=== PATIENT | female | born 1975 | race Two or more races ===

== ENCOUNTER 2022-03-02 12:29 | Emergency (ER) | payer OTHER ==
[~2022-03-02] VITALS: Ht 154.9 cm; Wt 107.0 kg
[2022-03-02] MEDS ORDERED: SODIUM CHLORIDE 0.9% 1,000 ML IV ONE (14:00)
[2022-03-02] MEDS ORDERED: ONDANSETRON HCL 4 MG/2 ML VIAL IV ONE (14:00)
[2022-03-02] MEDS ORDERED: KETOROLAC TROMETH 30 MG/ML 1ML VIAL IV ONE (14:00)
[2022-03-02 14:30] LABS: Basophils # (auto) 0.1 10 ^3/uL (0-0.2); Eosinophils # (auto) 0.3 10 ^3/uL (0-0.8); Hematocrit 35.8 % (36.0-46.0); Hemoglobin 11.7 g/dL (12.2-16.2); Lymphocytes # (auto) 2.8 10 ^3/uL (0.4-5.4); Lymphocytes % (auto) 27.9 % (10.0-50.0); Mean Corpuscular Hemoglobin 24.7 pg (28.0-32.0); Mean Corpuscular Hgb Conc. 32.7 g/dL (32.0-36.0); Mean Corpuscular Volume 75.4 fL (80.0-100.0); Monocytes # (auto) 0.5 10 ^3/uL (0-1.3); Monocytes % (auto) 5.4 % (0.0-12.0); Neutrophils # (auto) 6.2 10 ^3/uL (1.6-8.6); Neutrophils % (auto) 62.7 % (37.0-80.0); Nucleated Red Blood Cells % 0.1 %; Red Blood Cells 4.75 10^6/uL (4.0-5.20); Red Cell Distribution Width 15.8 % (11.8-14.3)
[2022-03-02 14:40] LABS: Urine Blood Negative /uL (Negative); Urine Specific Gravity 1.032 (1.001-1.035)
[2022-03-02 14:59] LABS: Albumin 3.5 g/dL (3.4-5.0); Calcium 9.4 mg/dL (8.5-10.1); Potassium 4.3 mmol/L (3.5-5.1)
[2022-03-02 15:03] LABS: BUN/Creatinine Ratio 23.5; Bilirubin, Total 0.4 mg/dL (0.2-1.0); Total Protein 7.9 g/dL (6.4-8.2)
[2022-03-02] MEDS ORDERED: DICY10CA PO (15:14)
[2022-03-02] MEDS ORDERED: PANT40TA2 PO (15:14)
[2022-03-02] MEDS ORDERED: DICL50TA2 PO (15:14)
[2022-03-02] MEDS ORDERED: TRAM50TA2 PO (15:14)
[2022-03-02 15:28] VITALS: BP 162/90
== END 2022-03-02 15:29 | disposition home or self-care (01) ==
LOC: ER 12:47
DX: R10.11 Right upper quadrant pain (principal); E11.9 Type 2 diabetes mellitus without complications; D50.9 Iron deficiency anemia, unspecified; I10 Essential (primary) hypertension; R74.8 Abnormal levels of other serum enzymes; Z88.8 Allergy status to other drugs, medicaments and biological substances
CPT/HCPCS: 36415; 76705; 80053; 81001; 81025; 83690; 83735; 85025

== ENCOUNTER 2022-04-17 11:29 | Emergency (ER) | payer MEDICAID, OTHER ==
[~2022-04-17] VITALS: Ht 157.5 cm; Wt 105.4 kg
[~2022-04-17 11:29] MED LIST: DICL50TA2 PO; DICY10CA PO; PANT40TA2 PO; TRAM50TA2 PO
[2022-04-17] MEDS ORDERED: ONDANSETRON HCL 4 MG/2 ML VIAL IV ONE (11:45)
[2022-04-17] MEDS ORDERED: KETOROLAC TROMETH 30 MG/ML 1ML VIAL IV ONE (11:45)
[2022-04-17] MEDS ORDERED: SODIUM CHLORIDE 0.9% 1,000 ML IVB ONE (11:45)
[2022-04-17 12:12] LABS: Basophils # (auto) 0.1 10 ^3/uL (0-0.2); Basophils % (auto) 1.1 % (0.0-2.0); Eosinophils # (auto) 0.3 10 ^3/uL (0-0.8); Monocytes # (auto) 0.4 10 ^3/uL (0-1.3); Neutrophils # (auto) 4.8 10 ^3/uL (1.6-8.6); Nucleated Red Blood Cells % 0.1 %; White Blood Cell 7.7 10^3/uL (4.4-10.8)
[2022-04-17 12:14] LABS: Eosinophils % (auto) 3.8 % (0.0-7.0); Hematocrit 34.2 % (36.0-46.0); Hemoglobin 10.8 g/dL (12.2-16.2); Lymphocytes # (auto) 2.2 10 ^3/uL (0.4-5.4); Lymphocytes % (auto) 28.3 % (10.0-50.0); Mean Corpuscular Hemoglobin 23.2 pg (28.0-32.0); Mean Corpuscular Hgb Conc. 31.6 g/dL (32.0-36.0); Mean Corpuscular Volume 73.3 fL (80.0-100.0); Monocytes % (auto) 5.1 % (0.0-12.0); Neutrophils % (auto) 61.7 % (37.0-80.0); Red Blood Cells 4.67 10^6/uL (4.0-5.20); Red Cell Distribution Width 15.2 % (11.8-14.3)
[2022-04-17 12:22] LABS: Albumin 3.5 g/dL (3.4-5.0); Calcium 9.2 mg/dL (8.5-10.1); Potassium 4.1 mmol/L (3.5-5.1)
[2022-04-17 12:25] LABS: BUN/Creatinine Ratio 16.7; Bilirubin, Total 0.3 mg/dL (0.2-1.0); Total Protein 8.1 g/dL (6.4-8.2)
[2022-04-17 13:35] LABS: Urine Bacteria NONE SEEN /hpf (None Seen); Urine Blood 2+ /uL (Negative); Urine Mucus FEW (None Seen); Urine Specific Gravity 1.029 (1.001-1.035); Urine WBC 5 /hpf (0 - 5)
[2022-04-17 15:25] VITALS: BP 116/53
== END 2022-04-17 15:43 | disposition home or self-care (01) ==
LOC: ER 11:33
DX: R10.11 Right upper quadrant pain (principal); R11.0 Nausea; R19.7 Diarrhea, unspecified; I10 Essential (primary) hypertension; E11.9 Type 2 diabetes mellitus without complications; E78.5 Hyperlipidemia, unspecified; Z79.2 Long term (current) use of antibiotics; Z79.899 Other long term (current) drug therapy; Z88.8 Allergy status to other drugs, medicaments and biological substances
CPT/HCPCS: 36415; 76705; 80053; 81001; 82962; 83690; 85025; 96361; 96374; 96375; 99284; J1885; J2405; J7030

== ENCOUNTER 2023-03-23 20:24 | Emergency (ER) | payer MEDICAID, OTHER ==
[~2023-03-23] VITALS: Ht 157.5 cm; Wt 97.9 kg
[2023-03-23 20:24] VITALS: BP 134/60; PULSE 93; RESP 18; O2SAT 96
== END 2023-03-23 23:28 | disposition left against medical advice (07) ==
LOC: ER 20:24
DX: H92.03 Otalgia, bilateral (principal); J02.9 Acute pharyngitis, unspecified; Z53.21 Procedure and treatment not carried out due to patient leaving prior to being seen by health care provider

== ENCOUNTER 2023-03-27 18:21 | Emergency (ER) | payer OTHER ==
[~2023-03-27] VITALS: Ht 160 cm; Wt 99.0 kg
[2023-03-27 18:30] VITALS: BP 140/76; PULSE 98; RESP 20; TEMP 97.8; O2SAT 100
[2023-03-27 21:16] LABS: Rapid Strep A Screen-Throat Negative
[2023-03-27] MEDS ORDERED: DexAMETHasone SOD PHOS 10MG/1ML VIAL INJ IM ONE (21:30)
[2023-03-27] MEDS ORDERED: BUDE2SUS3 IN (21:54)
== END 2023-03-27 22:13 | disposition home or self-care (01) ==
LOC: ER 18:21
DX: J04.0 Acute laryngitis (principal); I10 Essential (primary) hypertension; E11.9 Type 2 diabetes mellitus without complications; E78.5 Hyperlipidemia, unspecified; Z98.890 Other specified postprocedural states; Z88.8 Allergy status to other drugs, medicaments and biological substances; Z79.899 Other long term (current) drug therapy
CPT/HCPCS: 70360; 87070; 87880; 96372; 99284; J1100

== ENCOUNTER 2023-04-07 20:21 | Emergency (ER) | payer OTHER ==
[~2023-04-07] VITALS: Ht 160 cm; Wt 95.0 kg
[2023-04-07 20:21] VITALS: BP 156/81; PULSE 104; RESP 20; O2SAT 97
[~2023-04-07 20:21] MED LIST changes: +BUDE2SUS3 IN
== END 2023-04-07 22:13 | disposition left against medical advice (07) ==
LOC: ER 20:21
DX: J02.9 Acute pharyngitis, unspecified (principal); Z53.21 Procedure and treatment not carried out due to patient leaving prior to being seen by health care provider

== ENCOUNTER 2023-09-14 14:57 | Emergency (ER) | payer OTHER ==
[~2023-09-14] VITALS: Ht 160 cm; Wt 96.7 kg
[2023-09-14 16:23] VITALS: BP 129/72; PULSE 94; RESP 16; TEMP 97.8; O2SAT 98
[2023-09-14] MEDS: DexAMETHasone SOD PHOS 10MG/1ML VIAL INJ IM ONE (16:43)
[2023-09-14] MEDS ORDERED: PENI500T2 PO (16:54)
[2023-09-14] MEDS ORDERED: NAPR-746 PO (16:54)
[2023-09-14] MEDS ORDERED: LIDO2SOL26 MT (16:54)
== END 2023-09-14 16:54 | disposition home or self-care (01) ==
LOC: ER 15:00
DX: J02.9 Acute pharyngitis, unspecified (principal); I10 Essential (primary) hypertension; E11.9 Type 2 diabetes mellitus without complications; E78.5 Hyperlipidemia, unspecified; Z86.16 Personal history of COVID-19; Z88.8 Allergy status to other drugs, medicaments and biological substances; Z79.899 Other long term (current) drug therapy
CPT/HCPCS: 96372; 99283; J1100

== ENCOUNTER 2024-06-30 21:34 | Emergency (ER) | payer OTHER ==
[~2024-06-30] VITALS: Ht 160 cm; Wt 85.8 kg
[~2024-06-30 21:34] MED LIST changes: +LIDO2SOL26 MT; +NAPR-746 PO; +PENI500T2 PO
[2024-06-30 22:10] VITALS: BP 140/75; PULSE 93; RESP 16; TEMP 99; O2SAT 98
[2024-07-01] MEDS ORDERED: CEPHALEXIN 250 MG CAP PO ONE
[2024-07-01] MEDS ORDERED: KETOROLAC TROMETH 60MG/2ML VIAL IM ONE
[2024-07-01] MEDS ORDERED: TETANUS-DIPTH-ACEL PERTUSSIS 0.5ML SYR Tdap IM ONE
[2024-07-01] MEDS ORDERED: IBUP1TAB5 PO (00:07)
[2024-07-01] MEDS ORDERED: CEPH250C PO (00:07)
[2024-07-01] MEDS ORDERED: ACET500T58 PO (00:07)
--- NOTE | 2024-07-01 00:08 | ED.PDOC ---
History of Present Illness HPI Comments This patient is an obese 48-year-old female who arrives the ED today for evaluation of bumps on her scalp and headache that has been bothering her for the past several days. Patient states the bumps came up randomly and subsequent to those bumps, patient states she has developed intermittent headaches. Ani nt denies any history of dermatological concerns or intracranial issues. Vital signs were stable on arrival. Chief Complaint: Wound Check Time Seen by MD: 21:52 Primary Care Provider: Dr. Hansen Reviewed Notes: Nurses Notes Allergies: Coded Allergies: Prochlorperazine (Verified Allergy, Unknown, 03/02/22) Home Meds Active Scripts Penicillin V Potassium (Veetids) 500 Mg Tab, 1 TAB PO BID for 10 Days, #20 TAB 0 Refills Prov:RITO HAGEN PERSONNEL COUNSELOR 09/14/23 Lidocaine HCl (Mouth-Throat) (Lidocaine HCl Viscous) 2 % Lynn, 15 ML MT TIDP PRN for 10 Days, #1 BOTTLE 0 Refills Prov:RITO HAGEN NP 09/14/23 Naproxen (Naproxen) 500 Mg Tab, 500 MG PO BIDPC for 10 Days, #20 TAB 0 Refills Prov:RITO HAGEN PERSONNEL COUNSELOR 09/14/23 Budesonide (Inhalation) (Budesonide) 1 Mg/2 Ml Karely, 1 MG IN ONCE for 5 Days, #10 ML Prov:LOLY GREY PAC 03/27/23 Tramadol Hcl (Tramadol Hcl) 50 Mg Tab, 50 MG PO BID for 5 Days, #10 TAB Prov:ROD MCMAHON MD 03/02/22 Dicyclomine Hcl (BENTYL CAPSULE) 10 Mg Cp, 1 CAP PO TID for 10 Days, #90 CAP 11 Refills Prov:ROD MCMAHON MD 03/02/22 Diclofenac Potassium (Diclofenac Potassium) 50 Mg Tab, 1 TAB PO TIDP for 10 Days, #30 TAB Prov:ROD MCMAHON MD 03/02/22 Pantoprazole Sodium Sesquihydr (Protonix) 40 Mg Tab, 40 MG PO DAILY for 15 Days, #15 TAB Prov:ROD MCMAHON MD 03/02/22 Information Source: Patient Mode of Arrival: Ambulatory Severity: Moderate Timing: Days Duration: Since onset Prehospital treatment: None Past Medical History PAST MEDICAL HISTORY: DM, High Lipids, HTN 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: SOUND CONTROLLER History: Denies all SOUND 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 Hx Family History Family History: Reviewed,noncontributory to illness Social History Smoker: Non-Smoker Alcohol: Denies ETOH Use Drugs: Denies Drug Use Lives In: Home Constitutional: denies: chills, diaphoresis, fatigue, fever, malaise, sweats, weakness, others EENTM: denies: blurred vision, double vision, ear bleeding, ear discharge, ear drainage, ear pain, ear ringing, eye pain, eye redness, hearing loss, mouth pain, mouth swelling, nasal discharge, nose bleeding, nose congestion, nose pain, photophobia, tearing, throat pain, throat swelling, voice changes, others Respiratory: denies: cough, hemoptysis, orthopnea, SOB at rest, shortness of breath, SOB with excertion, stridor, wheezing, others Cardiovascular: denies: chest pain, dizzy spells, diaphoresis, Dyspnea on exertion, edema, irregular heart beat, left arm pain, lightheadedness, palpitations, PND, syncope, others Gastrointestinal: denies: abdomen distended, abdominal pain, blood streaked bowels, constipated, diarrhea, dysphagia, difficulty swallowing, hematemesis, melena, nausea, poor appetite, poor fluid intake, rectal bleeding, rectal pain, vomiting, others Genitourinary: denies: abnormal vagina bleeding, burning, dyspareunia, dysuria, flank pain, frequency, hematuria, incontinence, pain, , vagina discharge, urgency, others Neurological: reports: headache; denies: dizziness, fainting, left sided numbness, left sided weakness, numbness, paresthesia, pre-existing deficit, right sided numbness, right sided weakness, seizure, speech problems, tingling, tremors, weakness, others Musculoskeletal: denies: back pain, gout, joint pain, joint swelling, muscle pain, muscle stiffness, neck pain, others Integumetry: reports: lumps (To superior scalp); denies: bruises, change in color, change in hair/nails, dryness, laceration, lesions, rash, wounds, others Allergic/Immunocompromised: denies: Difficulty Healing, Frequent Infections, Hives, Itching, others Hematologic/Lymphatic: denies: anemia, blood clots, easy bleeding, easy bruising, swollen glands, others Endocrine: denies: excessive hunger, excessive sweating, excessive thirst, excessive urination, flushing, intolerance to cold, intolerance to heat, unexplained weight gain, unexplained weight loss, others Psychiatric: denies: anxiety, bipolar disorder, depression, hopeless, panic disorder, schizophrenia, sleepless, suicidal, others Physical Exam General Appearance: Moderate Distress (Acli-sa-hzipcvft distress due to scalp skin and headache concerns.), Normal HEENT: Head (Superior aspect of the patient's scalp reveals multiple lumps and dense including signs of evolving or resolving folliculitis. Localized erythema and edema. One point of drainage noted.), Normal ENT Inspection, Pharynx Normal, TMs Normal Neck: Full Range of Motion, Non-Tender, Normal, Normal Inspection Respiratory: Chest Non-Tender, Lungs Clear, No Accessory Muscle Use, No Respiratory Distress, Normal Breath Sounds Cardiovascular: No Edema, No JVD, No Murmur, No Gallop, Normal Peripheral Pulses, Regular Rate/Rhythm Breast Exam: Deferred Gastrointestinal: No Organomegaly, Non Tender, No Pulsatile Mass, Normal Bowel Sounds, Soft Genitalia: Deferred Pelvic: Deferred Rectal: Deferred Extremities: No calf tenderness, Normal capillary refill, Normal inspection, Normal range of motion, Non-tender, No pedal edema Neurologic: Alert, No Motor Deficits, Normal Affect, Normal Mood, No Sensory Deficits Cerebellar Function: Normal Reflexes: Normal Skin: Other (See HEENT for description of scalp tissue) Lymphatic: No Adenopathy Was a procedure done? Was a procedure done?: No Differential Dx Considerations may include: Folliculitis, headache X-Ray, Labs, Meds, VS Vital Signs Date Time Temp Pulse Resp B/P (MAP) Pulse Ox O2 Delivery O2 Flow Rate FiO2 06/30/24 22:10 99.0 93 16 140/75 (96) 98 99.0 X-Ray, Labs, Meds, VS Comment Spent time discussing the patient's concerns with her. Advised that I believe she has got a intermittent folliculitis. Patient has been advised to utilize antibiotics as directed until completion. Pain medication as needed. If symptoms do not resolve, patient will need to follow up with primary care provider for possible dermatologic referral and evaluation. Time of 1ST Reevaluation: 00:05 Reevaluation 1ST: Improved Consultation: PCP Patient Education/Counseling: Diagnosis, Treatment Family Education/Counseling: Diagnosis, Treatment Departure 1 Departure Time of Disposition: 00:06 Impression: Primary Impression: Folliculitis Disposition: HOME / SELF CARE / HOMELESS Condition: Stable Additional Instructions: Advised patient utilize antibiotics as directed until completion as well as pain medication as needed. If symptoms do not resolve, patient will need to follow up with the primary care provider for possible dermatologic referral and evaluation. e-Prescriptions Ibuprofen Micronized (Ibuprofen) 600 Mg Tab 600 MG PO Q6HP PRN, #30 TAB Prov: ERIN BARAHONA PAC 07/01/24 Acetaminophen (Acetaminophen) 500 Mg Tab 500 MG PO Q4HP PRN, #30 TAB Prov: ERIN BARAHONA PAC 07/01/24 Cephalexin (KEFLEX CAPSULE) 250 Mg Cp 1 CAP PO QID for 7 Days, #28 CAP Prov: ERIN BARAHONA [facility] 07/01/24 Discharged With: Self, Friend Critical Care Note Critical Care Time?: No Stability Stability form required: No Heart Score Heart Score: Heart Score Response (Comments) Value History N/A 0 EKG N/A 0 Age N/A 0 Risk Factors N/A 0 Troponin N/A 0 Total 0 ERIN BARAHONA Jul 01, 2024 00:08
== END 2024-07-01 02:34 | disposition left against medical advice (07) ==
LOC: ER 21:34
DX: L73.9 Follicular disorder, unspecified (principal); E11.9 Type 2 diabetes mellitus without complications; I10 Essential (primary) hypertension; E78.5 Hyperlipidemia, unspecified; Z79.899 Other long term (current) drug therapy; Z88.1 Allergy status to other antibiotic agents

== ENCOUNTER 2024-07-13 18:38 | Emergency (ER) | payer OTHER ==
[~2024-07-13] VITALS: Ht 157.5 cm; Wt 86.5 kg
[~2024-07-13 18:38] MED LIST changes: +ACET500T58 PO; +CEPH250C PO; +IBUP1TAB5 PO
[2024-07-13 18:46] VITALS: BP 156/86; PULSE 99; RESP 18; TEMP 98.2; O2SAT 99
== END 2024-07-13 20:15 | disposition left against medical advice (07) ==
LOC: ER 18:38
DX: R51.9 Headache, unspecified (principal); R22.0 Localized swelling, mass and lump, head; Z53.21 Procedure and treatment not carried out due to patient leaving prior to being seen by health care provider

== ENCOUNTER 2024-08-01 09:41 | Emergency (ER) | payer OTHER ==
[~2024-08-01] VITALS: Ht 157.5 cm; Wt 82.0 kg
[2024-08-01] MEDS: HYDROcodone-ACET 10/325MG TAB PO ONE (11:06)
[2024-08-01] MEDS: IBUPROFEN 600 MG TAB PO ONE (11:06)
[2024-08-01 12:00] LABS: Basophils # (auto) 0.1 10 ^3/uL (0-0.2); Basophils % (auto) 0.8 % (0.0-2.0); Eosinophils # (auto) 0.6 10 ^3/uL (0-0.8); Eosinophils % (auto) 6.6 % (0.0-7.0); Hematocrit 31.4 % (36.0-46.0); Hemoglobin 9.9 g/dL (12.2-16.2); Lymphocytes # (auto) 2.2 10 ^3/uL (0.4-5.4); Lymphocytes % (auto) 25.2 % (10.0-50.0); Mean Corpuscular Hemoglobin 22.1 pg (28.0-32.0); Mean Corpuscular Hgb Conc. 31.7 g/dL (32.0-36.0); Mean Corpuscular Volume 69.6 fL (80.0-100.0); Monocytes # (auto) 0.6 10 ^3/uL (0-1.3); Monocytes % (auto) 6.5 % (0.0-12.0); Neutrophils # (auto) 5.4 10 ^3/uL (1.6-8.6); Neutrophils % (auto) 60.9 % (37.0-80.0); Platelet Count (auto) 258 10^3/uL (140-450); Red Blood Cells 4.51 10^6/uL (4.0-5.20); Red Cell Distribution Width 16.6 % (11.8-14.3); White Blood Cell 8.8 10^3/uL (4.4-10.8)
[2024-08-01 12:08] LABS: Chloride 106 mmol/L (98-107); Potassium 3.6 mmol/L (3.5-5.1); Sodium 139 mmol/L (136-145)
[2024-08-01 12:09] LABS: Anion Gap 7 (5-15); Carbon Dioxide 26 mmol/L (20-31)
[2024-08-01 12:10] LABS: Calcium 9.9 mg/dL (8.7-10.4)
[2024-08-01 12:14] LABS: BUN/Creatinine Ratio 20.7 (10.0-20.0); Blood Urea Nitrogen 12 mg/dL (9-23)
[2024-08-01 12:16] LABS: Glucose 214 mg/dL (74-106)
[2024-08-01] MEDS ORDERED: NAPR-957 PO (12:25)
[2024-08-01] MEDS ORDERED: METH-1181 PO (12:25)
--- NOTE | 2024-08-01 12:25 | ED.PDOC ---
Back pain HPI HPI Comments This is a pleasant 48-year-old female with a history of diabetes, hypertension that presents with a chief complaint of atraumatic nonradiating right lumbosacral paraspinal back pain Onset started two days ago and pain has been persistent since. Able to get minimal relief with [id number] Tylenol and Motrin. Pain is aggravated with lateral movements and alleviated at rest Denies history of chronic steroid use or history of osteoporosis Denies any history of cancer Denies fevers chills night sweats nausea vomiting unintentional weight loss Denies IV drug use history of HIV/TB Denies abdominal "tearing" pain Denies syncope Denies urinary incontinence or urinary changes Denies numbness tingling of the groin or inner thigh Denies previous back procedure or surgery Chief Complaint: Back Pain Time Seen by MD: 10:04 Primary Care Provider: AIDEN Suaerz Notes: Nurses Notes, Medications, Allergies Allergies: Coded Allergies: Prochlorperazine (Verified Allergy, Unknown, 03/02/22) Home Meds Active Scripts Ibuprofen Micronized (Ibuprofen) 600 Mg Tab, 600 MG PO Q6HP PRN, #30 TAB Prov:ERIN BARAHONA PAC 07/01/24 Acetaminophen (Acetaminophen) 500 Mg Tab, 500 MG PO Q4HP PRN, #30 TAB Prov:ERIN BARAHONA PAC 07/01/24 Cephalexin (KEFLEX CAPSULE) 250 Mg Cp, 1 CAP PO QID for 7 Days, #28 CAP Prov:ERIN BARAHONA PAC 07/01/24 Penicillin V Potassium (Veetids) 500 Mg Tab, 1 TAB PO BID for 10 Days, #20 TAB 0 Refills Prov:RITO HAGEN SAFETY AND SECURITY MANAGER 09/14/23 Lidocaine HCl (Mouth-Throat) (Lidocaine HCl Viscous) 2 % Lynn, 15 ML MT TIDP PRN for 10 Days, #1 BOTTLE 0 Refills Prov:RITO HAGEN SAFETY AND SECURITY MANAGER 09/14/23 Naproxen (Naproxen) 500 Mg Tab, 500 MG PO BIDPC for 10 Days, #20 TAB 0 Refills Prov:RITO HAGEN SAFETY AND SECURITY MANAGER 09/14/23 Budesonide (Inhalation) (Budesonide) 1 Mg/2 Ml Karely, 1 MG IN ONCE for 5 Days, #10 ML Prov:LOLY GREY PAC 03/27/23 Tramadol Hcl (Tramadol Hcl) 50 Mg Tab, 50 MG PO BID for 5 Days, #10 TAB Prov:ROD MCMAHON MD 03/02/22 Dicyclomine Hcl (BENTYL CAPSULE) 10 Mg Cp, 1 CAP PO TID for 10 Days, #90 CAP 11 Refills Prov:ROD MCMAHON MD 03/02/22 Diclofenac Potassium (Diclofenac Potassium) 50 Mg Tab, 1 TAB PO TIDP for 10 Days, #30 TAB Prov:ROD MCMAHON MD 03/02/22 Pantoprazole Sodium Sesquihydr (Protonix) 40 Mg Tab, 40 MG PO DAILY for 15 Days, #15 TAB Prov:ROD MCMAHON MD 03/02/22 Information Source: Patient Mode of Arrival: Ambulatory Past Medical History PAST MEDICAL HISTORY: DM, High Lipids, HTN 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: 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 AGENT Hx Family History Family History: Reviewed,noncontributory to illness Social History Smoker: Non-Smoker Alcohol: Denies ETOH Use Drugs: Denies Drug Use Lives In: Home All Other Systems: Reviewed and Negative (Per HPI) Physical Exam General Appearance: No Apparent Distress, Normal HEENT: Normal ENT Inspection, Pharynx Normal, TMs Normal Neck: Full Range of Motion, Non-Tender, Normal, Normal Inspection Respiratory: Chest Non-Tender, Lungs Clear, No Accessory Muscle Use, No Respiratory Distress, Normal Breath Sounds Cardiovascular: No Edema, No JVD, No Murmur, No Gallop, Normal Peripheral Pulses, Regular Rate/Rhythm Breast Exam: Deferred Gastrointestinal: No Organomegaly, Non Tender, No Pulsatile Mass, Normal Bowel Sounds, Soft Genitalia: Deferred Pelvic: Deferred Rectal: Deferred Extremities: No calf tenderness, Normal capillary refill, Normal inspection, Normal range of motion, Non-tender, No pedal edema Musculoskeletal : Apperance: Normal Neurologic: Alert, able bodied seaman II-XII nml as Tested, No Motor Deficits, Normal Affect, Normal Mood, No Sensory Deficits Cerebellar Function: Normal Reflexes: Normal Skin: Dry, Normal Color, Warm Lymphatic: No Adenopathy Was a procedure done? Was a procedure done?: No Images 1 - No gross abnormality on inspection. No midline tenderness. No bony step- offs on palpation. Right paraspinal lumbosacral tenderness to palpation. Distal neuro sensation intact Back Pain Differential Dx Differential Diagnosis: Musculoskeletal Pain X-Ray, Labs, Meds, VS Vital Signs Date Time Temp Pulse Resp B/P (MAP) Pulse Ox O2 Delivery O2 Flow Rate FiO2 08/01/24 11:06 98.6 08/01/24 10:02 98.1 86 28 114/62 (79) 100 98.1 Lab Test 08/01/24 11:45 Range/Units White Blood Count 8.8 4.4-10.8 10^3/uL Red Blood Count 4.51 4.0-5.20 10^6/uL Hemoglobin 9.9 L 12.2-16.2 g/dL Hematocrit 31.4 L 36.0-46.0 % Mean Corpuscular Volume 69.6 L 80.0-100.0 fL Mean Corpuscular Hemoglobin 22.1 L 28.0-32.0 pg Mean Corpuscular Hemoglobin Concent 31.7 L 32.0-36.0 g/dL Red Cell Distribution Width 16.6 H 11.8-14.3 % Platelet Count 258 140-450 10^3/uL Mean Platelet Volume 7.3 6.9-10.8 fL Neutrophils (%) (Auto) 60.9 37.0-80.0 % Lymphocytes (%) (Auto) 25.2 10.0-50.0 % Monocytes (%) (Auto) 6.5 0.0-12.0 % Eosinophils (%) (Auto) 6.6 0.0-7.0 % Basophils (%) (Auto) 0.8 0.0-2.0 % Neutrophils # (Auto) 5.4 1.6-8.6 10 ^3/uL Lymphocytes # (Auto) 2.2 0.4-5.4 10 ^3/uL Monocytes # (Auto) 0.6 0-1.3 10 ^3/uL Eosinophils # (Auto) 0.6 0-0.8 10 ^3/uL Basophils # (Auto) 0.1 0-0.2 10 ^3/uL Nucleated Red Blood Cells 0.0 % Sodium Level 139 136-145 mmol/L Potassium Level 3.6 3.5-5.1 mmol/L Chloride Level 106 98-107 mmol/L Carbon Dioxide Level 26 20-31 mmol/L Anion Gap 7 5-15 Blood Urea Nitrogen 12 9-23 mg/dL Creatinine 0.58 0.550-1.02 mg/dL Glomerular Filtration Rate Calc 110 >90 mL/min BUN/Creatinine Ratio 20.7 H 10.0-20.0 Serum Glucose 214 H 74-106 mg/dL Calcium Level 9.9 8.7-10.4 mg/dL Current Medications Medications (Trade) Dose Ordered Sig/Thomas Route Start Time Stop Time Status Last Admin Ibuprofen (Motrin Tablet) 600 mg ONCE ONCE PO 08/01/24 11:00 08/01/24 11:01 DC 08/01/24 11:06 Acetaminophen/ Hydrocodone Bitart ([place] 10/325MG Tab) 1 tab ONCE ONCE PO 08/01/24 11:00 08/01/24 11:01 DC 08/01/24 11:06 X-Ray, Labs, Meds, VS Comment Presentation most consistent with nonemergent musculoskeletal etiology versus nonemergent disc herniation. ED workup: Defer imaging and lab work for outpatient follow up at this time Disposition: Discharge. Strict return precautions discussed with the patient with full understanding. Supportive care advised (rest, ice, heat, NSAIDs, stretching exercises) Massage muscles with cold pack or ice for 20 minutes 4 times per day. Usually most useful if there is swelling during the first 48 hours Heating pad on the most painful area for 20 minutes to relieve muscle spasm Sleep and the most comfortable sleeping position (usually on the side with knees bent) Light stretching, no strenuous activity, avoid frequent bending, avoid carrying heavy objects Discussed possible benefits of yoga and acupuncture Return precautions discussed including Inability to walk/bear weight Paresthesia/weakness/leg pain Fecal/urinary incontinence Any worsening symptoms Additional MDM Review of External, Non-ED records: External records reviewed. Discussion with independent historian (EMS, family) history obtained from the patient at bedside Chronic conditions affecting care: none Social determinants of health affecting care: none Consideration of admission (observation or admission): I considered escalation of care to admission for this patient, however given the reassuring workup, the patient is safe for outpatient management. Time of 1ST Reevaluation: 12:23 Reevaluation 1ST: Improved Patient Education/Counseling: Diagnosis, Treatment Family Education/Counseling: Diagnosis, Treatment Departure 1 Departure Time of Disposition: 12:24 Impression: Primary Impression: Back pain Qualified Codes: M54.50 - Low back pain, unspecified Disposition: HOME / SELF CARE / HOMELESS Condition: Fair e-Prescriptions Naproxen (Naproxen) 375 Mg Tab 1 TAB PO BIDPC for 10 Days, #20 TAB 0 Refills Prov: RITO HAGEN SAFETY AND SECURITY MANAGER 08/01/24 Methocarbamol (Methocarbamol) 500 Mg Tab 500 MG PO Q6HP PRN for 10 Days, #40 TAB 0 Refills Prov: RITO HAGEN SAFETY AND SECURITY MANAGER 08/01/24 Critical Care Note Critical Care Time?: No Stability Stability form required: No Heart Score Heart Score: Heart Score Response (Comments) Value History N/A 0 EKG N/A 0 Age N/A 0 Risk Factors N/A 0 Troponin N/A 0 Total 0 RITO HAGEN SAFETY AND SECURITY MANAGER August 01, 2024 12:25
[2024-08-01 12:30] VITALS: BP 115/66; PULSE 88; RESP 17; TEMP 98.2; O2SAT 100
== END 2024-08-01 12:32 | disposition home or self-care (01) ==
LOC: ER 09:41
DX: M54.9 Dorsalgia, unspecified (principal); E11.9 Type 2 diabetes mellitus without complications; I10 Essential (primary) hypertension; E78.5 Hyperlipidemia, unspecified; Z79.899 Other long term (current) drug therapy; Z98.890 Other specified postprocedural states; Z88.1 Allergy status to other antibiotic agents
CPT/HCPCS: 36415; 80048; 85025

== ENCOUNTER 2024-12-18 23:26 | Emergency (ER) | payer OTHER ==
[~2024-12-18] VITALS: Ht 160 cm; Wt 70.3 kg
[~2024-12-18 23:26] MED LIST changes: +METH-1181 PO; +NAPR-957 PO
[2024-12-18 23:27] VITALS: BP 125/54; PULSE 89; RESP 19; TEMP 97; O2SAT 98
[2024-12-19 01:34] LABS: Urine Amorphous Crystal FEW /hpf (None Seen); Urine Protein, UAD TRACE (Negative)
== END 2024-12-19 01:45 | disposition left against medical advice (07) ==
LOC: ER 23:26
DX: M54.9 Dorsalgia, unspecified (principal); Z53.21 Procedure and treatment not carried out due to patient leaving prior to being seen by health care provider
CPT/HCPCS: 81001

== ENCOUNTER 2025-01-09 15:12 | Emergency (ER) | payer OTHER ==
[~2025-01-09] VITALS: Ht 160 cm; Wt 93.1 kg
[2025-01-09 15:13] VITALS: BP 143/82; PULSE 94; RESP 15; TEMP 97.7; O2SAT 99
--- NOTE | 2025-01-09 15:24 | ED.PDOC ---
History of Present Illness HPI Comments 49 year old female with PMHx HTN, HLD, DM, aneurysm, presents to the ED with a chief compliant of neck pain onset today (01/09/25). Patient states she woke up today experiencing RT side neck pain, headache. Patient is being followed up by [facility] for aneurysm, pending surgery. Patient called PCP, was advised to go to ED. Denies, blurred vision, numbness/tingling, chest pain, shortness of breath, nausea, vomiting, diarrhea. No other symptoms or modifying factors present at this time. Chief Complaint: Neck Pain Time Seen by MD: 15:20 Primary Care Provider: AIDEN Suarez Notes: Medications, Allergies Allergies: Coded Allergies: Prochlorperazine (Verified Allergy, Unknown, 03/02/22) Home Meds Active Scripts Naproxen (Naproxen) 375 Mg Tab, 1 TAB PO BIDPC for 10 Days, #20 TAB 0 Refills Prov:RITO HAGEN HOGSHEAD OPENER 08/01/24 Methocarbamol (Methocarbamol) 500 Mg Tab, 500 MG PO Q6HP PRN for 10 Days, #40 TAB 0 Refills Prov:RITO HAGEN HOGSHEAD OPENER 08/01/24 Ibuprofen Micronized (Ibuprofen) 600 Mg Tab, 600 MG PO Q6HP PRN, #30 TAB Prov:ERIN BARAHONA PAC 07/01/24 Acetaminophen (Acetaminophen) 500 Mg Tab, 500 MG PO Q4HP PRN, #30 TAB Prov:ERIN BARAHONA PAC 07/01/24 Cephalexin (KEFLEX CAPSULE) 250 Mg Cp, 1 CAP PO QID for 7 Days, #28 CAP Prov:ERIN BARAHONA PAC 07/01/24 Penicillin V Potassium (Veetids) 500 Mg Tab, 1 TAB PO BID for 10 Days, #20 TAB 0 Refills Prov:RITO HAGEN HOGSHEAD OPENER 09/14/23 Lidocaine HCl (Mouth-Throat) (Lidocaine HCl Viscous) 2 % Lynn, 15 ML MT TIDP PRN for 10 Days, #1 BOTTLE 0 Refills Prov:RITO HAGEN HOGSHEAD OPENER 09/14/23 Naproxen (Naproxen) 500 Mg Tab, 500 MG PO BIDPC for 10 Days, #20 TAB 0 Refills Prov:RITO HAGEN HOGSHEAD OPENER 09/14/23 Budesonide (Inhalation) (Budesonide) 1 Mg/2 Ml Karely, 1 MG IN ONCE for 5 Days, #10 ML Prov:LOLY GREY PAC 03/27/23 Tramadol Hcl (Tramadol Hcl) 50 Mg Tab, 50 MG PO BID for 5 Days, #10 TAB Prov:ROD MCMAHON MD 03/02/22 Dicyclomine Hcl (BENTYL CAPSULE) 10 Mg Cp, 1 CAP PO TID for 10 Days, #90 CAP 11 Refills Prov:ROD MCMAHON MD 03/02/22 Diclofenac Potassium (Diclofenac Potassium) 50 Mg Tab, 1 TAB PO TIDP for 10 Days, #30 TAB Prov:ROD MCMAHON MD 03/02/22 Pantoprazole Sodium Sesquihydr (Protonix) 40 Mg Tab, 40 MG PO DAILY for 15 Days, #15 TAB Prov:ROD MCMAHON MD 03/02/22 Information Source: Patient Mode of Arrival: Ambulatory Severity: Moderate Timing: Hours Duration: Since onset Prehospital treatment: None Past Medical History PAST MEDICAL HISTORY: DM, High Lipids, HTN 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 SCIENCE TEACHER Hx Family History Family History: Reviewed,noncontributory to illness Social History Smoker: Non-Smoker Alcohol: Denies ETOH Use Drugs: Denies Drug Use Lives In: Home Constitutional: denies: chills, diaphoresis, fatigue, fever, malaise, sweats, weakness, others EENTM: denies: blurred vision, double vision, ear bleeding, ear discharge, ear drainage, ear pain, ear ringing, eye pain, eye redness, hearing loss, mouth pain, mouth swelling, nasal discharge, nose bleeding, nose congestion, nose pain, photophobia, tearing, throat pain, throat swelling, voice changes, others Respiratory: denies: cough, hemoptysis, orthopnea, SOB at rest, shortness of breath, SOB with excertion, stridor, wheezing, others Cardiovascular: denies: chest pain, dizzy spells, diaphoresis, Dyspnea on exertion, edema, irregular heart beat, left arm pain, lightheadedness, palpitations, PND, syncope, others Gastrointestinal: denies: abdomen distended, abdominal pain, blood streaked bowels, constipated, diarrhea, dysphagia, difficulty swallowing, hematemesis, melena, nausea, poor appetite, poor fluid intake, rectal bleeding, rectal pain, vomiting, others Genitourinary: denies: abnormal vagina bleeding, burning, dyspareunia, dysuria, flank pain, frequency, hematuria, incontinence, pain, , vagina discharge, urgency, others Neurological: reports: headache; denies: dizziness, fainting, left sided numbness, left sided weakness, numbness, paresthesia, pre-existing deficit, right sided numbness, right sided weakness, seizure, speech problems, tingling, tremors, weakness, others Musculoskeletal: reports: neck pain; denies: back pain, gout, joint pain, joint swelling, muscle pain, muscle stiffness, others Integumetry: denies: bruises, change in color, change in hair/nails, dryness, laceration, lesions, lumps, rash, wounds, others Allergic/Immunocompromised: denies: Difficulty Healing, Frequent Infections, Hives, Itching, others Hematologic/Lymphatic: denies: anemia, blood clots, easy bleeding, easy bruising, swollen glands, others Endocrine: denies: excessive hunger, excessive sweating, excessive thirst, excessive urination, flushing, intolerance to cold, intolerance to heat, unexplained weight gain, unexplained weight loss, others Psychiatric: denies: anxiety, bipolar disorder, depression, hopeless, panic disorder, schizophrenia, sleepless, suicidal, others All Other Systems: Reviewed and Negative Physical Exam General Appearance: Moderate Distress, Other (appears uncomfortable) HEENT: Normal ENT Inspection, Pharynx Normal, TMs Normal Neck: Full Range of Motion, Non-Tender, Normal, Normal Inspection Respiratory: Chest Non-Tender, Lungs Clear, No Accessory Muscle Use, No Respiratory Distress, Normal Breath Sounds Cardiovascular: No Edema, No JVD, No Murmur, No Gallop, Normal Peripheral Pulses, Regular Rate/Rhythm Breast Exam: Deferred Gastrointestinal: No Organomegaly, Non Tender, No Pulsatile Mass, Normal Bowel Sounds, Soft Genitalia: Deferred Pelvic: Deferred Rectal: Deferred Extremities: No calf tenderness, Normal capillary refill, Normal inspection, Normal range of motion, Non-tender, No pedal edema Musculoskeletal : Apperance: Normal Neurologic: Alert, 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 Was a procedure done?: No Differential Dx Considerations may include: Migraine, CVA, viral syndrome X-Ray, Labs, Meds, VS Vital Signs Date Time Temp Pulse Resp B/P (MAP) Pulse Ox O2 Delivery O2 Flow Rate FiO2 01/09/25 15:13 97.7 94 15 143/82 99 97.7 Lab Test 01/09/25 15:42 Range/Units White Blood Count 9.6 4.4-10.8 10^3/uL Red Blood Count 4.54 4.0-5.20 10^6/uL Hemoglobin 8.3 L 12.2-16.2 g/dL Hematocrit 28.3 L 36.0-46.0 % Mean Corpuscular Volume 62.2 L 80.0-100.0 fL Mean Corpuscular Hemoglobin 18.3 L 28.0-32.0 pg Mean Corpuscular Hemoglobin Concent 29.5 L 32.0-36.0 g/dL Red Cell Distribution Width 17.7 H 11.8-14.3 % Platelet Count 343 140-450 10^3/uL Mean Platelet Volume 7.2 6.9-10.8 fL Neutrophils (%) (Auto) 69.0 37.0-80.0 % Lymphocytes (%) (Auto) 20.7 10.0-50.0 % Monocytes (%) (Auto) 5.2 0.0-12.0 % Eosinophils (%) (Auto) 4.1 0.0-7.0 % Basophils (%) (Auto) 1.0 0.0-2.0 % Neutrophils # (Auto) 6.6 1.6-8.6 10 ^3/uL Lymphocytes # (Auto) 2.0 0.4-5.4 10 ^3/uL Monocytes # (Auto) 0.5 0-1.3 10 ^3/uL Eosinophils # (Auto) 0.4 0-0.8 10 ^3/uL Basophils # (Auto) 0.1 0-0.2 10 ^3/uL Nucleated Red Blood Cells 0.2 % Platelet Estimate Adequate Hypochromasia (manual) Moderate Microcytosis Moderate Stomatocytes Few Sodium Level 136 136-145 mmol/L Potassium Level 3.9 3.5-5.1 mmol/L Chloride Level 103 98-107 mmol/L Carbon Dioxide Level 24 20-31 mmol/L Anion Gap 9 5-15 Blood Urea Nitrogen 14 9-23 mg/dL Creatinine 0.69 0.550-1.02 mg/dL Glomerular Filtration Rate Calc 105 >90 mL/min BUN/Creatinine Ratio 20.3 H 10.0-20.0 Serum Glucose 274 H 74-106 mg/dL Calcium Level 9.6 8.7-10.4 mg/dL Current Medications Medications (Trade) Dose Ordered Sig/Thomas Route Start Time Stop Time Status Last Admin Sodium Chloride 1,000 ml @ 1,000 mls/hr Q1H ONCE IV 01/09/25 15:30 01/09/25 16:29 DC 01/09/25 17:40 Metoclopramide HCl (Reglan Injection) 10 mg ONCE ONCE IV 01/09/25 15:30 01/09/25 15:31 DC 01/09/25 17:40 Acetaminophen (Tylenol Tablet) 650 mg ONCE ONCE PO 01/09/25 15:30 01/09/25 15:31 DC 01/09/25 17:40 [place] [id number] Ph: [phone] DIAGNOSTIC IMAGING Diagnostic Imaging Report : [id number] Signed PATIENT: IVETTE TRIANAT: [id number] UNIT: [id number] : 1975 LOC: ER ROOM / BED: / AGE / SEX: 49 / F ADM STATUS: REG ER SERVICE 1521 ORDERING PHYSICIAN: ENEDINA BRAUN MD PROCEDURE(s): HWOCT - HEAD WITHOUT CONTRAST REASON: severe headache, hx of aneurysm ORDER NUMBER(s): [id number], ACCESSION NUMBER(s): [id number] EXAM: CT HEAD WITHOUT CONTRAST INDICATION: severe headache, hx of aneurysm TECHNIQUE: CT of the head without intravenous contrast. Radiation Dose : 1. Head: CT Dose: CTDI volume is 56.55 mGy. Dose-length product is 906.57 mGy*cm The dose indicators for CT are the volume Computed Tomography (CT) Dose Index (CTDIvol) and the Dose Length Product (DLP), and are measured in units of mGy and mGy-cm, respectively. These indicators are not patient dose, but values generated from the CT scanner acquisition factors. The report includes radiation exposure data for exposures received during this examination. COMPARISON: MRA BRAIN W OR WO on DOS: 11/17/24, CT BRAIN on DOS: 11/17/24, CT ANGIO HEAD on DOS: 11/17/24, MRI BRAIN WO on DOS: 08/17/24, CT BRAIN on DOS: 08/17/24 FINDINGS: There is no evidence of acute intracranial hemorrhage, extra-axial collection, mass effect, midline shift, herniation or hydrocephalus. The ventricles, sulci and cisterns are age appropriate. The morrison-white differentiation is intact. The visualized paranasal sinuses and mastoid air cells are clear. The surrounding soft tissues and osseous structures are unremarkable. IMPRESSION: No acute intracranial abnormality. Radiation optimization: All CT scans at this facility use at least one of these dose optimization techniques: automated exposure control mA and/or kV adjustment per patient size (includes targeted exams where dose is matched to clinical indication) or iterative reconstruction. ATED BY: KEISHA MONIQUE MD DICTATED DATE/TIME: 01/09/25 1600 SIGNED BY: KEISHA MONIQUE MD SIGNED DATE/TIME: 01/09/25 1600 CC: Time of 1ST Reevaluation: 15:50 Reevaluation 1ST: Unchanged Patient Education/Counseling: Diagnosis, Treatment, Prognosis Family Education/Counseling: No Family Present SEPSIS Sepsis Screen Date sepsis recognized/suspect: Jan 09, 2025 Time Sepsis recognized/suspect: 1515 Recent Procedure: No On Antibiotic Therapy: No Respiratory Rate >20: No Heart Rate >90: No Temp<36 C (96.8 F) or >38.3 C: No SBP <90 or MAP <65 mmHG: No New Acute Mental Status Change: No Is the patient on CPAP, BIPAP,: No Physician Orders Head Without Contrast (01/09/25 15:21) Vital Signs Date Time Temp Pulse Resp B/P (MAP) Pulse Ox O2 Delivery O2 Flow Rate FiO2 01/09/25 15:13 97.7 94 15 143/82 99 97.7 Laboratory Tests Test 01/09/25 15:42 White Blood Count 9.6 10^3/uL (4.4-10.8) Medications Medications Dose Ordered Sig/Thomas Route Start Time Stop Time Status Last Admin Dose Admin Acetaminophen 650 mg ONCE ONCE PO 01/09/25 15:30 01/09/25 15:31 DC 01/09/25 17:40 Metoclopramide HCl 10 mg ONCE ONCE IV 01/09/25 15:30 01/09/25 15:31 DC 01/09/25 17:40 Sodium Chloride 1,000 ml @ 1,000 mls/hr Q1H ONCE IV 01/09/25 15:30 01/09/25 16:29 DC 01/09/25 17:40 Departure 1 Departure Time of Disposition: 18:08 (Patient likely with a migraine. We will discharge patient home with outpatient follow up) Impression: Primary Impression: Migraine Disposition: HOME / SELF CARE / HOMELESS Condition: Stable Additional Instructions: You likely had a migraine. CT scan was benign. You received medications in the ER. You can take tylenol and motrin as needed for pain. You should stay well rested and well hydrated. It is important to follow up with your regular doctor within one week. If your symptoms worsen or you have any other concerns then please return to the ER. Discharged With: Self Critical Care Note Critical Care Time?: No Stability Stability form required: No Heart Score Heart Score: Heart Score Response (Comments) Value History N/A 0 EKG N/A 0 Age N/A 0 Risk Factors N/A 0 Troponin N/A 0 Total 0 I personally scribed for ENEDINA BRAUN MD ([email or web address]) on 01/09/25 at 15:24. Electronically submitted by Sandra Alonso ([email or web address]). I personally scribed for ENEDINA BRAUN MD ([email or web address]) on 01/09/25 at 16:06. El ectronically submitted by Sandra Alonso ([email or web address]). ENEDINA BRAUN MD Jan 09, 2025 15:24
[2025-01-09 15:55] LABS: Hematocrit 28.3 % (36.0-46.0); Hemoglobin 8.3 g/dL (12.2-16.2); Mean Corpuscular Hemoglobin 18.3 pg (28.0-32.0)
[2025-01-09 15:57] LABS: Mean Corpuscular Volume 62.2 fL (80.0-100.0); Nucleated Red Blood Cells % 0.2 %
[2025-01-09 16:02] LABS: Chloride 103 mmol/L (98-107); Potassium 3.9 mmol/L (3.5-5.1); Sodium 136 mmol/L (136-145)
--- NOTE | 2025-01-09 16:02 | DVH ---
EXAM: CT HEAD WITHOUT CONTRAST INDICATION: severe headache, hx of aneurysm TECHNIQUE: CT of the head without intravenous contrast. Radiation Dose : 1. Head: CT Dose: CTDI volume is 56.55 mGy. Dose-length product is 906.57 mGy*cm The dose indicators for CT are the volume Computed Tomography (CT) Dose Index (CTDIvol) and the Dose Length Product (DLP), and are measured in units of mGy and mGy-cm, respectively. These indicators are not patient dose, but values generated from the CT scanner acquisition factors. The report includes radiation exposure data for exposures received during this examination. COMPARISON: MRA BRAIN W OR WO on DOS: 11/17/24, CT BRAIN on DOS: 11/17/24, CT ANGIO HEAD on DOS: 5, MRI BRAIN WO on DOS: 08/17/24, CT BRAIN on DOS: 08/17/24 FINDINGS: There is no evidence of acute intracranial hemorrhage, extra-axial collection, mass effect, midline s hift, herniation or hydrocephalus. The ventricles, sulci and cisterns are age appropriate. The morrison-white differentiation is intact. The visualized paranasal sinuses and mastoid air cells are clear. The surrounding soft tissues and osseous structures are unremarkable. IMPRESSION: No acute intracranial abnormality. Radiation optimization: All CT scans at this facility use at least one of these dose optimization jaun hniques: automated exposure control mA and/or kV adjustment per patient size (includes targeted exam s where dose is matched to clinical indication) or iterative reconstruction.
[2025-01-09 16:03] LABS: Anion Gap 9 (5-15); Calcium 9.6 mg/dL (8.7-10.4); Carbon Dioxide 24 mmol/L (20-31)
[2025-01-09 16:08] LABS: BUN/Creatinine Ratio 20.3 (10.0-20.0); Blood Urea Nitrogen 14 mg/dL (9-23)
[2025-01-09 16:09] LABS: Glucose 274 mg/dL (74-106)
[2025-01-09 16:15] LABS: Stomatocytes Few
[2025-01-09] MEDS: SODIUM CHLORIDE 0.9% 1,000 ML IV ONE (17:40)
[2025-01-09] MEDS: METOCLOPRAMIDE HCL 5MG/ml INJ 2ml VIAL IV ONE (17:40)
[2025-01-09] MEDS: ACETAMINOPHEN 325 MG TAB PO ONE (17:40)
== END 2025-01-09 18:23 | disposition home or self-care (01) ==
LOC: ER 15:12
DX: G43.909 Migraine, unspecified, not intractable, without status migrainosus (principal); M54.2 Cervicalgia; E11.9 Type 2 diabetes mellitus without complications; E78.5 Hyperlipidemia, unspecified; I10 Essential (primary) hypertension; Z86.79 Personal history of other diseases of the circulatory system; E86.0 Dehydration
CPT/HCPCS: 36415; 70450; 80048; 85025; 96361; 96374; 99285; J2765; J7030

== ENCOUNTER 2025-03-13 09:52 | Inpatient (IN) | payer OTHER ==
[~2025-03-13] VITALS: Ht 160 cm; Wt 96.1 kg
[2025-03-13 11:12] VITALS: PULSE 75; RESP 16; O2SAT 98
[2025-03-13] MEDS: SODIUM CHLORIDE 0.9% 500 ML IV ONE (11:23)
[2025-03-13 11:31] LABS: Mean Corpuscular Hemoglobin 17.0 pg (28.0-32.0); Nucleated Red Blood Cells % 0.0 %
--- NOTE | 2025-03-13 11:32 | ED.PDOC ---
History of Present Illness HPI Comments 49 y/o obese F presents with c/c of nonradiating, right sided abdominal pain and melena stool production x 4 days. Associated poor appetite secondary to pain. Pain is a '11/10' in severity. Denial of any associated nausea, vomiting, diarrhea, fever, chills, or further acute symptoms. Pertinent history of pre vious stroke, brain aneurysms, DM, HTN, C-sections, BTL, and former polysubstance abuse. Chief Complaint: GI Bleed Time Seen by MD: 10:35 Primary Care Provider: AIDEN Reviewed Notes: Nurses Notes, Medications, Allergies Allergies: Coded Allergies: Prochlorperazine (Verified Allergy, Unknown, 03/02/22) Home Meds Active Scripts Naproxen (Naproxen) 375 Mg Tab, 1 TAB PO BIDPC for 10 Days, #20 TAB 0 Refills Prov:RITO HAGEN GAME TESTER 08/01/24 Methocarbamol (Methocarbamol) 500 Mg Tab, 500 MG PO Q6HP PRN for 10 Days, #40 TAB 0 Refills Prov:RITO HAGEN GAME TESTER 08/01/24 Ibuprofen Micronized (Ibuprofen) 600 Mg Tab, 600 MG PO Q6HP PRN, #30 TAB Prov:ERIN BARAHONA PAC 07/01/24 Acetaminophen (Acetaminophen) 500 Mg Tab, 500 MG PO Q4HP PRN, #30 TAB Prov:ERIN BARAHONA PAC 07/01/24 Cephalexin (KEFLEX CAPSULE) 250 Mg Cp, 1 CAP PO QID for 7 Days, #28 CAP Prov:ERIN BARAHONA PAC 07/01/24 Penicillin V Potassium (Veetids) 500 Mg Tab, 1 TAB PO BID for 10 Days, #20 TAB 0 Refills Prov:RITO HAGEN GAME TESTER 09/14/23 Lidocaine HCl (Mouth-Throat) (Lidocaine HCl Viscous) 2 % Lynn, 15 ML MT TIDP PRN for 10 Days, #1 BOTTLE 0 Refills Prov:RITO HAGEN GAME TESTER 09/14/23 Naproxen (Naproxen) 500 Mg Tab, 500 MG PO BIDPC for 10 Days, #20 TAB 0 Refills Prov:RITO HAGEN GAME TESTER 09/14/23 Budesonide (Inhalation) (Budesonide) 1 Mg/2 Ml Karely, 1 MG IN ONCE for 5 Days, #10 ML Prov:LOLY GREY PAC 03/27/23 Tramadol Hcl (Tramadol Hcl) 50 Mg Tab, 50 MG PO BID for 5 Days, #10 TAB Prov:ROD MCMAHON MD 03/02/22 Dicyclomine Hcl (BENTYL CAPSULE) 10 Mg Cp, 1 CAP PO TID for 10 Days, #90 CAP 11 Refills Prov:ROD MCMAHON MD 03/02/22 Diclofenac Potassium (Diclofenac Potassium) 50 Mg Tab, 1 TAB PO TIDP for 10 Days, #30 TAB Prov:ROD MCMAHON MD 03/02/22 Pantoprazole Sodium Sesquihydr (Protonix) 40 Mg Tab, 40 MG PO DAILY for 15 Days, #15 TAB Prov:ROD MCMAHON MD 03/02/22 Information Source: Patient Mode of Arrival: Ambulatory Severity: Moderate Timing: Days Duration: Since onset Prehospital treatment: None Past Medical History PAST MEDICAL HISTORY: DM, HTN 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, SHOP ESTIMATOR History: Denies all SHOP ESTIMATOR Hx Family History Family History: Reviewed,noncontributory to illness, No family hx of Cancer, No family hx of Heart nehemias, No family hx ofKidney nehemias, No family hx of Liver nehemias, No family hx of Lung nehemias, No family hx of Stroke, Family hx of DM, Family hx of HTN Social History Smoker: Non-Smoker Alcohol: Denies ETOH Use Drugs: Denies Drug Use Lives In: Home Constitutional: denies: chills, diaphoresis, fatigue, fever, malaise, sweats, weakness, others EENTM: denies: blurred vision, double vision, ear bleeding, ear discharge, ear drainage, ear pain, ear ringing, eye pain, eye redness, hearing loss, mouth pain, mouth swelling, nasal discharge, nose bleeding, nose congestion, nose pain, photophobia, tearing, throat pain, throat swelling, voice changes, others Respiratory: denies: cough, hemoptysis, orthopnea, SOB at rest, shortness of breath, SOB with excertion, stridor, wheezing, others Cardiovascular: denies: chest pain, dizzy spells, diaphoresis, Dyspnea on exertion, edema, irregular heart beat, left arm pain, lightheadedness, palp itations, PND, syncope, others Gastrointestinal: reports: abdominal pain, melena; denies: abdomen distended, blood streaked bowels, constipated, diarrhea, dysphagia, difficulty swallowing, hematemesis, nausea, poor appetite, poor fluid intake, rectal bleeding, rectal pain, vomiting, others Genitourinary: denies: abnormal vagina bleeding, burning, dyspareunia, dysuria, flank pain, frequency, hematuria, incontinence, pain, , vagina discharge, urgency, others Neurological: denies: dizziness, fainting, headache, left sided numbness, left sided weakness, numbness, paresthesia, pre-existing deficit, right sided numbness, right sided weakness, seizure, speech problems, tingling, tremors, weakness, others Musculoskeletal: denies: back pain, gout, joint pain, joint swelling, muscle pain, muscle stiffness, neck pain, others Integumetry: denies: bruises, change in color, change in hair/nails, dryness, laceration, lesions, lumps, rash, wounds, others Allergic/Immunocompromised: denies: Difficulty Healing, Frequent Infections, Hives, Itching, others Hematologic/Lymphatic: denies: anemia, blood clots, easy bleeding, easy bruising, swollen glands, others Endocrine: denies: excessive hunger, excessive sweating, excessive thirst, excessive urination, flushing, intolerance to cold, intolerance to heat, unex plained weight gain, unexplained weight loss, others Psychiatric: denies: anxiety, bipolar disorder, depression, hopeless, panic disorder, schizophrenia, sleepless, suicidal, others All Other Systems: Reviewed and Negative Physical Exam General Appearance: Moderate Distress HEENT: Normal ENT Inspection, Pharynx Normal, TMs Normal Neck: Full Range of Motion, Non-Tender, Normal, Normal Inspection Respiratory: Chest Non-Tender, Lungs Clear, No Accessory Muscle Use, No Respiratory Distress, Normal Breath Sounds Cardiovascular: No Edema, No JVD, No Murmur, No Gallop, Normal Peripheral Pulses, Regular Rate/Rhythm Breast Exam: Deferred Gastrointestinal: Diffuse, No Organomegaly, No Pulsatile Mass, Normal Bowel Sounds, Soft, Tenderness Genitalia: Deferred Pelvic: Deferred Rectal: Deferred Extremities: No calf tenderness, Normal capillary refill, Normal inspection, Normal range of motion, Non-tender, No pedal edema Musculoskeletal : Apperance: Normal Neurologic: Alert, lawn mower operator II-XII nml as Tested, Motor Weakness, Normal Affect, Normal Mood, No Sensory Deficits Cerebellar Function: Normal Reflexes: Normal Skin: Dry, Normal Color, Warm Lymphatic: No Adenopathy Was a procedure done? Was a procedure done?: No Differential Dx Considerations may include: Upper GI bleed, anemia, dehydration, electrolyte imbalance, gastritis, gastroenteritis, cholelithiasis, cholecystis, appendicitis, diverticulitis, among others X-Ray, Labs, Meds, VS Vital Signs Date Time Temp Pulse Resp B/P (MAP) Pulse Ox O2 Delivery O2 Flow Rate FiO2 03/13/25 14:29 97.5 75 16 124/75 (91) 99 97.5 03/13/25 12:23 98.0 75 16 120/73 (89) 98 98.0 03/13/25 12:04 77 16 125/73 03/13/25 11:12 75 16 98 Room Air* 0 21 03/13/25 10:52 98.4 75 16 146/74 (98) 98 98.4 03/13/25 10:15 97.6 81 18 167/93 99 97.6 Lab Test 03/13/25 10:48 Range/Units White Blood Count 7.7 4.4-10.8 10^3/uL Red Blood Count 5.31 H 4.0-5.20 10^6/uL Hemoglobin 9.0 L 12.2-16.2 g/dL Hematocrit 30.6 L 36.0-46.0 % Mean Corpuscular Volume 57.7 L 80.0-100.0 fL Mean Corpuscular Hemoglobin 17.0 L 28.0-32.0 pg Mean Corpuscular Hemoglobin Concent 29.5 L 32.0-36.0 g/dL Red Cell Distribution Width 20.8 H 11.8-14.3 % Platelet Count 356 140-450 10^3/uL Mean Platelet Volume 8.2 6.9-10.8 fL Neutrophils (%) (Auto) 68.5 37.0-80.0 % Lymphocytes (%) (Auto) 22.6 10.0-50.0 % Monocytes (%) (Auto) 4.6 0.0-12.0 % Eosinophils (%) (Auto) 3.7 0.0-7.0 % Basophils (%) (Auto) 0.6 0.0-2.0 % Neutrophils # (Auto) 5.3 1.6-8.6 10 ^3/uL Lymphocytes # (Auto) 1.8 0.4-5.4 10 ^3/uL Monocytes # (Auto) 0.4 0-1.3 10 ^3/uL Eosinophils # (Auto) 0.3 0-0.8 10 ^3/uL Basophils # (Auto) 0 0-0.2 10 ^3/uL Nucleated Red Blood Cells 0.0 % Platelet Estimate Adequate Hypochromasia (manual) Marked Anisocytosis (manual) Slight Microcytosis Marked Prothrombin Time 10.3 9.3-11.8 sec Prothrombin Time INR 0.97 0.9-1.15 Activated Partial Thromboplast Time 24.9 24.5-34.5 SEC Sodium Level 138 136-145 mmol/L Potassium Level 3.6 3.5-5.1 mmol/L Chloride Level 104 98-107 mmol/L Carbon Dioxide Level 26 20-31 mmol/L Anion Gap 8 5-15 Blood Urea Nitrogen 10 9-23 mg/dL Creatinine 0.59 0.550-1.02 mg/dL Glomerular Filtration Rate Calc 109 >90 mL/min BUN/Creatinine Ratio 16.9 10.0-20.0 Serum Glucose 106 74-106 mg/dL Calcium Level 9.4 8.7-10.4 mg/dL Current Medications Medications (Trade) Dose Ordered Sig/Thomas Route Start Time Stop Time Status Last Admin Sodium Chloride 500 ml @ 500 mls/hr Q1H ONCE IV 03/13/25 10:45 03/13/25 11:44 DC 03/13/25 11:23 Ondansetron HCl (Zofran) 4 mg ONCE ONCE IV 03/13/25 11:45 03/13/25 11:46 DC 03/13/25 12:03 Morphine Sulfate 4 mg ONCE ONCE IV 03/13/25 11:45 03/13/25 11:46 DC 03/13/25 12:04 IV Hep-Lock was established. The patient was given normal saline at 500 cc bolus The patient was given Zofran 4 mg IV push for the nausea The patient was also given morphine 4 mg IV push At this time, the patient is being admitted to the hospitalist. At this time, the patient agrees with the management. Cat scan of the abdomen and pelvis is negative The patient continues to have persistent pain so the patient is being admitted Images Reviewed?: Images reviewed and evaluated by me Time of 1ST Reevaluation: 11:05 Reevaluation 1ST: Unchanged Patient Education/Counseling: Diagnosis, Treatment, Prognosis Family Education/Counseling: No Family Present SEPSIS Sepsis Screen Date sepsis recognized/suspect: Mar 13, 2025 Time Sepsis recognized/suspect: 1014 Recent Procedure: No On Antibiotic Therapy: No Respiratory Rate >20: No Heart Rate >90: No Temp<36 C (96.8 F) or >38.3 C: No SBP <90 or MAP <65 mmHG: No New Acute Mental Status Change: No Is the patient on CPAP, BIPAP,: No Physician Orders Heplock Iv (03/13/25 10:39) Mems Integration Engineer (03/13/25 10:39) Blood Pressure (03/13/25 10:39) Pulse Oximetry (03/13/25 10:39) Ct Ab Pel Wo Con-No Oral Or Iv (03/13/25 10:39) Vital Signs Date Time Temp Pulse Resp B/P (MAP) Pulse Ox O2 Delivery O2 Flow Rate FiO2 03/13/25 14:29 97.5 75 16 124/75 (91) 99 97.5 03/13/25 12:23 98.0 75 16 120/73 (89) 98 98.0 03/13/25 12:04 77 16 125/73 03/13/25 11:12 75 16 98 Room Air* 0 21 03/13/25 10:52 98.4 75 16 146/74 (98) 98 98.4 03/13/25 10:15 97.6 81 18 167/93 99 97.6 Laboratory Tests Test 03/13/25 10:48 White Blood Count 7.7 10^3/uL (4.4-10.8) Medications Medications Dose Ordered Sig/Thomas Route Start Time Stop Time Status Last Admin Dose Admin Morphine Sulfate 4 mg ONCE ONCE IV 03/13/25 11:45 03/13/25 11:46 DC 03/13/25 12:04 Ondansetron HCl 4 mg ONCE ONCE IV 03/13/25 11:45 03/13/25 11:46 DC 03/13/25 12:03 Sodium Chloride 500 ml @ 500 mls/hr Q1H ONCE IV 03/13/25 10:45 03/13/25 11:44 DC 03/13/25 11:23 Departure 1 Departure Time of Disposition: 15:03 Impression: Primary Impression: Intractable abdominal pain Additional Impression: Lower GI bleed Disposition: ADMITTED INPATIENT Admit to: Med Surg Condition: Fair Critical Care Note Critical Care Time?: No Stability Stability form required: Yes Unstable for transfer: ED Physician Assesment (Clinical assesment) Heart Score Heart Score: Heart Score Response (Comments) Value History N/A 0 EKG N/A 0 Age N/A 0 Risk Factors N/A 0 Troponin N/A 0 Total 0 I personally scribed for SID FERREIRA MD ([email or web address]) on 03/13/25 at 11:32. Electronically submitted by Aditya Guardado ([email or web address]). SID FERREIRA MD Mar 13, 2025 11:32
[2025-03-13 11:33] LABS: Hematocrit 30.6 % (36.0-46.0); Hemoglobin 9.0 g/dL (12.2-16.2); Mean Corpuscular Volume 57.7 fL (80.0-100.0)
[2025-03-13 11:35] LABS: Chloride 104 mmol/L (98-107); Potassium 3.6 mmol/L (3.5-5.1); Sodium 138 mmol/L (136-145)
[2025-03-13 11:36] LABS: Anion Gap 8 (5-15); Calcium 9.4 mg/dL (8.7-10.4); Carbon Dioxide 26 mmol/L (20-31)
[2025-03-13 11:41] LABS: BUN/Creatinine Ratio 16.9 (10.0-20.0); Blood Urea Nitrogen 10 mg/dL (9-23)
[2025-03-13 11:52] LABS: Glucose 106 mg/dL (74-106)
[2025-03-13] MEDS: ONDANSETRON HCL 4 MG/2 ML VIAL IV ONE (12:03)
[2025-03-13] MEDS: MORPHINE SULFATE 4 MG/ML SYR/VIAL IV ONE (12:04)
[2025-03-13 12:14] LABS: INR 0.97 (0.9-1.15); Partial Thromboplastin Time 24.9 SEC (24.5-34.5); Prothrombin Time 10.3 sec (9.3-11.8)
[2025-03-13 12:28] LABS: Anisocytosis Slight
--- NOTE | 2025-03-13 14:03 | DVH ---
EXAM: CT CT AB PEL WO CON-NO ORAL OR IV HISTORY: pain Comparison Study: None Exam Date: 03/13/2025 11:37 AM Radiation Dose Information: CT Dose: CTDI volume is 17.86 mGy. Dose-length product is 1074.34 mGy*cm TECHNIQUE: Multidetector CT of the abdomen and pelvis was performed. Imaging was performed without IV contrast. Axial, coronal and sagittal multiplanar reformats were obtained from the axial data set by the technologist. FINDINGS: Lack of intravenous contrast compromises evaluation of perfusion and for isodense lesions. Lower chest: Clear. Liver: Unremarkable Biliary system: Unremarkable Spleen: Unremarkable Pancreas: Unremarkable. Adrenals: Unremarkable. Kidneys and ureters: No hydronephrosis. Punctate nonobstructing left renal calculus. Bowel: No obstruction. Normal appendix. Bladder: Unremarkable Reproductive organs: 2.5 cm right adnexal/ovarian cyst. Lymph nodes: Unremarkable. Peritoneum: Unremarkable Vessels: Patency not evaluated on this noncontrast study. Bones and soft tissue: No aggressive osseous lesion IMPRESSION: No acute CT findings in the abdomen and pelvis.
[2025-03-13] MEDS ORDERED: NITROGLYCERIN 0.4 MG SL TAB SL PRN (15:30)
[2025-03-13] MEDS ORDERED: MORPHINE SULFATE INJ 2 MG/ml SYRG IV PRN (15:30)
[2025-03-13] MEDS ORDERED: DEXTROSE (50%) 50ML SYRG IV PRN (15:30)
[2025-03-13] MEDS: PANTOPRAZOLE 40 MG/10 ML VIAL INJ IV ONE (15:45)
--- NOTE | 2025-03-13 16:14 | DVHHPRES ---
History of Present Illness Resident Creating Document: KEYLA WASHINGTON RESIDENT History of Present Illness Jose is a patient with a history of diabetes mellitus, hypertension, and brain aneurysm presenting with a 4-day history of black stools associated with abdominal pain. The patient reports waking up 4 days ago with significant stomach pain then started having black stools initially liquid than solid associated with the pain is located in the right upper quadrant area and is exacerbated by eating, , Due to the pain with eating, the patient reports not having eaten much over the past 4 days. The patient denies any recent travel and states they have never experienced these symptoms before. Medical History - Diabetes mellitus - Hypertension - Brain aneurysm 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 - section Social History - Substance Use: History of marijuana use and alcohol use, reports going to rehab and recovering - Living Situation: Has a son and daughter, mentions brothers Medications and Supplements - Metformin for diabetes - Amlodipine for hypertension - Aspirin daily - Gabapentin Review of Systems General: Negative for other symptoms. HEENT: Positive for ear pain. Gastrointestinal: Positive for abdominal pain with eating, negative for vomiting. Review of Systems Allergies: Coded Allergies: Prochlorperazine (Verified Allergy, Unknown, 03/02/22) Medications Current Medications Medications Dose Ordered Sig/Thomas Route Start Time Stop Time Status Last Admin Dose Admin Sodium Chloride 10 ml Q8HR IV 03/13/25 22:00 Sodium Chloride 1,000 ml @ 60 mls/hr [id number] IV 03/13/25 15:30 Acetaminophen/ Hydrocodone Bitart 1 tab Q4HP PRN PO 03/13/25 15:30 Ondansetron HCl 4 mg Q4HP PRN IV 03/13/25 15:30 Acetaminophen 650 mg Q6HP PRN PO 03/13/25 15:30 Nitroglycerin 0.4 mg Q5MINP PRN SL 03/13/25 15:30 Morphine Sulfate 2 mg Q30M PRN IV 03/13/25 15:30 Diagnostic Test (Pha) 1 strip ACHS 03/13/25 17:00 Insulin Human Regular ACHS SC 03/13/25 17:00 Dextrose 50 ml UD PRN IV 03/13/25 15:30 Pantoprazole Sodium 40 mg DAILY IV 03/14/25 10:00 Exam Vital Signs Vital Signs Date Time Temp Pulse Resp B/P (MAP) Pulse Ox O2 Delivery O2 Flow Rate FiO2 03/13/25 14:29 97.5 75 16 124/75 (91) 99 97.5 03/13/25 11:12 Room Air* 0 21 Exam Pt is lying on bed General Appearance: Alert, Oriented X3, Cooperative, Not in acute distress HEENT: Atraumatic, Mucous membranes moist/pink Respiratory: Clear to auscultation, Normal air movement, No added sounds Cardiovascular: Regular rate, Normal S1, Normal S2, No murmurs Abdomen: Right upper quadrant tenderness noted on examination. Extremities: No edema, Normal pulses, No tenderness/swelling Skin: No Significant rash, except past surgical scars Neuro: Normal speech, sensorimotor deficits none Psych/Mental Status: Mental status NL, Mood NL Nurse was there as mathematical technician during examination Labs/Xrays Labs Test 03/13/25 10:48 Range/Units White Blood Count 7.7 4.4-10.8 10^3/uL Red Blood Count 5.31 H 4.0-5.20 10^6/uL Hemoglobin 9.0 L 12.2-16.2 g/dL Hematocrit 30.6 L 36.0-46.0 % Mean Corpuscular Volume 57.7 L 80.0-100.0 fL Mean Corpuscular Hemoglobin 17.0 L 28.0-32.0 pg Mean Corpuscular Hemoglobin Concent 29.5 L 32.0-36.0 g/dL Red Cell Distribution Width 20.8 H 11.8-14.3 % Platelet Count 356 140-450 10^3/uL Mean Platelet Volume 8.2 6.9-10.8 fL Neutrophils (%) (Auto) 68.5 37.0-80.0 % Lymphocytes (%) (Auto) 22.6 10.0-50.0 % Monocytes (%) (Auto) 4.6 0.0-12.0 % Eosinophils (%) (Auto) 3.7 0.0-7.0 % Basophils (%) (Auto) 0.6 0.0-2.0 % Neutrophils # (Auto) 5.3 1.6-8.6 10 ^3/uL Lymphocytes # (Auto) 1.8 0.4-5.4 10 ^3/uL Monocytes # (Auto) 0.4 0-1.3 10 ^3/uL Eosinophils # (Auto) 0.3 0-0.8 10 ^3/uL Basophils # (Auto) 0 0-0.2 10 ^3/uL Nucleated Red Blood Cells 0.0 % Platelet Estimate Adequate Hypochromasia (manual) Marked Anisocytosis (manual) Slight Microcytosis Marked Prothrombin Time 10.3 9.3-11.8 sec Prothrombin Time INR 0.97 0.9-1.15 Activated Partial Thromboplast Time 24.9 24.5-34.5 SEC Sodium Level 138 136-145 mmol/L Potassium Level 3.6 3.5-5.1 mmol/L Chloride Level 104 98-107 mmol/L Carbon Dioxide Level 26 20-31 mmol/L Anion Gap 8 5-15 Blood Urea Nitrogen 10 9-23 mg/dL Creatinine 0.59 0.550-1.02 mg/dL Glomerular Filtration Rate Calc 109 >90 mL/min BUN/Creatinine Ratio 16.9 10.0-20.0 Serum Glucose 106 74-106 mg/dL Calcium Level 9.4 8.7-10.4 mg/dL SEPSIS Sepsis Screen Date sepsis recognized/suspect: Mar 13, 2025 Time Sepsis recognized/suspect: 1014 Recent Procedure: No On Antibiotic Therapy: No Respiratory Rate >20: No Heart Rate >90: No Temp<36 C (96.8 F) or >38.3 C: No SBP <90 or MAP <65 mmHG: No New Acute Mental Status Change: No Is the patient on CPAP, BIPAP,: No Physician Orders Heplock Iv (03/13/25 10:39) Sandwich Peddler (03/13/25 10:39) Blood Pressure (03/13/25 10:39) Pulse Oximetry (03/13/25 10:39) Ct Ab Pel Wo Con-No Oral Or Iv (03/13/25 10:39) Admit (03/13/25 15:20) Allergies (03/13/25 15:20) Code Status (03/13/25 15:20) Sodium Chloride Lock (Saline Lock Ns) (03/13/25 22:00) Sodium Chloride 0.9% (03/13/25 15:30) Hydrocodone-Acet 5/325mg Tab ([place] 5/32 (03/13/25 15:30) Ondansetron Hcl (Zofran) (03/13/25 15:30) Complete Blood Count (03/14/25 04:00) Comprehensive Metabolic Panel (03/14/25 04:00) Condition: Fair (03/13/25 15:20) Acetaminophen Tablet (Tylenol Tablet) (03/13/25 15:30) Clear Liq Diet (03/13/25 Dinner) Nitroglycerin Sublingual (Ntrostat Subli (03/13/25 15:30) Morphine Sulfate Injection (03/13/25 15:30) Oxygen By Nasal Cannula (03/13/25 15:20) Stat Ekg For Chest Pain (03/13/25 15:20) Notify Md Of Changes From Base (03/13/25 15:20) Auto Electrical Technician For 24 Hours (03/13/25 15:20) Emergency Dysrhythmia Protocol (03/13/25 15:20) Rhythm Strips Once Every Shift (03/13/25 15:20) Stool Occult Blood (03/13/25 15:20) Gallbladder (03/13/25 15:20) Glucose Blood (Accu-Chek Comfort Curve T (03/13/25 17:00) Insulin R (Human) (Insulin R) (03/13/25 17:00) Dextrose 50% Syringe (03/13/25 15:30) Pantoprazole (Protonix) (03/14/25 10:00) * Gi Dvh Instructor Creeler (03/13/25 15:20) Hemoglobin A1c (03/13/25 16:07) Urinalysis (03/13/25 16:07) Thyroid Stimulating Hormone (03/13/25 16:07) Drug Screen (03/13/25 16:07) Hepatic Panel (03/13/25 16:07) Iron Panel (03/13/25 16:07) Aspirin Enteric Coated Tablet (Ecotrin E (03/14/25 10:00) Amlodipine Tablet (Norvasc Tablet) (03/14/25 10:00) Vital Signs Date Time Temp Pulse Resp B/P (MAP) Pulse Ox O2 Delivery O2 Flow Rate FiO2 03/13/25 14:29 97.5 75 16 124/75 (91) 99 97.5 03/13/25 12:23 98.0 75 16 120/73 (89) 98 98.0 03/13/25 12:04 77 16 125/73 03/13/25 11:12 75 16 98 Room Air* 0 21 12/22/25 10:52 98.4 75 16 146/74 (98) 98 98.4 03/13/25 10:15 97.6 81 18 167/93 99 97.6 Laboratory Tests Test 03/13/25 10:48 White Blood Count 7.7 10^3/uL (4.4-10.8) Medications Medications Dose Ordered Sig/Thomas Route Start Time Stop Time Status Last Admin Dose Admin Morphine Sulfate 4 mg ONCE ONCE IV 03/13/25 11:45 03/13/25 11:46 DC 03/13/25 12:04 4 MG Ondansetron HCl 4 mg ONCE ONCE IV 03/13/25 11:45 03/13/25 11:46 DC 03/13/25 12:03 4 MG Pantoprazole Sodium 40 mg ONCE ONCE IV 03/13/25 15:30 03/13/25 15:37 DC 03/13/25 15:45 40 MG Sodium Chloride 500 ml @ 500 mls/hr Q1H ONCE IV 03/13/25 10:45 03/13/25 11:44 DC 03/13/25 11:23 500 MLS/HR Assessment/Plan Assessment/Plan Lower GI bleed Melena R/o gallstones/ acute cholecystitis Microcytic, hypochromic anemia Plan: - Monitoring H&H - unable to perform rectal exam due to patient is in ER hallway, we will attempt again - CT abdominal pelvis showed no acute changes - ordered gallbladder ultrasound - on symptomatic management - Ordered a GI consult - iron panel - Further evaluation and management as inpatient admission T 2 Diabetes mellitus Plan: - ISS - A1C Hypertension Assessment: Patient has established hypertension currently managed with amlodipine. Plan: - Continue amlodipine Brain aneurysm Plan: - Continue aspirin daily - continue outpatient follow up GI PPX: Protonix VTE ppx: Lovenox Diet: NPO/ clear liquids if tolerates Goals of care addressed with the patient for more than 27 minutes: Full code status Case discussed with Dr. Yarbrough ,patient and nurse Plan discussed with: Patient My Orders Orders - KEYLA WASHINGTON RESIDENT Procedure Category Date Status Time Admit ADMIT 03/13/25 Transmitted 15:20 Allergies ISIAH 03/13/25 In Process 15:20 Code Status CODE 03/13/25 Transmitted 15:20 Sodium Chloride Lock PHA 03/13/25 In Process (Saline Lock Ns) 22:00 Sodium Chloride 0.9% PHA 03/13/25 In Process 15:30 Hydrocodone-Acet PHA 03/13/25 In Process 5/325mg Tab ([place] 15:30 Ondansetron Hcl PHA 03/13/25 In Process (Zofran) 15:30 Complete Blood Count LAB 03/14/25 Verified 04:00 Comprehensive LAB 03/14/25 Verified Metabolic Panel 04:00 Condition: Fair ISIAH 03/13/25 In Process 15:20 Acetaminophen Tablet PHA 03/13/25 In Process (Tylenol Tablet) 15:30 Clear Liq Diet DIET 03/13/25 Transmitted Dinner Nitroglycerin PHA 03/13/25 In Process Sublingual (Ntrostat 15:30 Morphine Sulfate PHA 03/13/25 In Process Injection 15:30 Oxygen By Nasal RT 03/13/25 Transmitted Cannula 15:20 Stat Ekg For Chest [facility] 03/13/25 In Process Pain 15:20 Notify Md Of Changes [facility] 03/13/25 In Process From Base 15:20 Auto Electrical Technician For [facility] 03/13/25 In Process 24 Hours 15:20 Emergency Dysrhythmia [facility] 03/13/25 In Process Protocol 15:20 Rhythm Strips Once [facility] 03/13/25 In Process Every Shift 15:20 Stool Occult Blood LAB 03/13/25 Logged 15:20 Gallbladder US 03/13/25 Taken 15:20 Glucose Blood PHA 03/13/25 In Process (Accu-Chek Comfort 17:00 Insulin R (Human) PHA 03/13/25 In Process (Insulin R) 17:00 Dextrose 50% Syringe PHA 03/13/25 In Process 15:30 Pantoprazole PHA 03/14/25 In Process (Protonix) 10:00 * Gi Dvh Instructor Creeler CONS 03/13/25 Transmitted 15:20 Hemoglobin A1c LAB 03/13/25 Logged 16:07 Urinalysis LAB 03/13/25 Logged 16:07 Thyroid Stimulating LAB 03/13/25 Logged Hormone 16:07 Drug Screen LAB 03/13/25 Logged 16:07 Hepatic Panel LAB 03/13/25 Logged 16:07 Iron Panel LAB 03/13/25 Logged 16:07 Aspirin Enteric PHA 03/14/25 Transmitted Coated Tablet 10:00 Amlodipine Tablet PHA 03/14/25 Transmitted (Norvasc Tablet) 10:00 Visit Coding STANDARD RES Billing Provider: TWYLA YARBROUGH MD Date of Service if different f: Mar 13, 2025 Common Visit Codes: 17517-[id number] INP/OBS CARE (HIGH) Secondary Visit Codes: 83994-[id number] CARE PLAN 30 MINUTES PADMINIOXANASB RESIDENT Mar 13, 2025 16:14 TWYLA YARBROUGH MD Mar 14, 2025 22:00
[2025-03-13 16:55] LABS: Alanine Aminotransferase 26.0 U/L (7-40); Albumin 4.5 g/dL (3.2-4.8); Alkaline Phosphatase 55.0 U/L (46-116); Bilirubin, Direct 0.1 mg/dL (<0.3); Bilirubin, Total 0.5 mg/dL (0.2-1.0)
[2025-03-13] MEDS: InsuLIN REG 1unit/0.01ml Soln (100units/ml) SC SCH (17:00)
[2025-03-13 17:07] LABS: Total Protein 8.3 g/dL (5.7-8.2)
[2025-03-13 17:22] LABS: Iron 26.0 ug/dL (50-170)
[2025-03-13 17:24] LABS: Total Iron Binding Capacity 396.0 ug/dL (250-425)
--- NOTE | 2025-03-13 17:51 | DVH ---
INDICATION: Severe tenderness, Antony positive Rule out GB pathology TECHNIQUE: Multiple real-time sonographic images of the abdomen were obtained. COMPARISON: GALLBLADDER on DOS: 04/17/22, GBUS on DOS: 04/17/22, GALLBLADDER on DOS: 03/02/22 FINDINGS: Echogenic Hepatic cortex suggesting steatosis. The liver measures 17.21 cm. No intrahepatic biliary ductal dilatation is noted. The gallbladder wall measures 0. 2 8 cm and is unremarkable. No gallstones or sludge is seen. The common duct measures 10.8 mm and is unremarkable. No pericholecystic fluid is noted. The right kidney measures 12.35 cm. No hydronephrosis. The pancreas is not well visualized due to obscuration from bowel gas. The visualized portions of the IVC and aorta are grossly unremarkable. IMPRESSION: 1. Normal exam of the abdomen. 2. Liver measures 17.2 cm in length with changes consistent with steatosis. 3. Gallbladder normal 4. Right kidney measures 12.35 cm and appears normal
[2025-03-13] MEDS: ACCU-CHEK COMFORT CURVE STRIP VI SCH (17:59)
[2025-03-13 18:23] LABS: Phencyclidine Screen, Urine Pos (NEGATIVE)
--- NOTE | 2025-03-13 18:35 | DVHINCON2 ---
Date of service: Mar 13, [address] Fernandez Reason for Consultation Melena History of Present Illness Jose is a 49 y o female patient with a history of diabetes mellitus, hypertension, and brain aneurysm presenting with a 4-day history of black stools associated with abdominal pain. The patient reports waking up 4 days ago with significant stomach pain then started having black stools initially liquid than solid associated with the pain is located in the right upper quadrant area and is exacerbated by eating, , Due to the pain with eating, the patient reports not having eaten much over the past 4 days. The patient denies any recent travel and states they have never experienced these symptoms before. Patient is on multiple pain medications including naproxen, ibuprofen and diclofenac. Patient has mild microcytic anemia. 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 - Living Situation: Has a son and daughter, mentions brothers Allergies: Coded Allergies: Prochlorperazine (Verified Allergy, Unknown, 03/02/22) Home Meds Active Scripts Naproxen (Naproxen) 375 Mg Tab, 1 TAB PO BIDPC for 10 Days, #20 TAB 0 Refills Prov:RITO [address]AG[address] SUPERVISOR 08/01/24 Methocarbamol (Methocarbamol) 500 Mg Tab, 500 MG PO Q6HP PRN for 10 Days, #40 TAB 0 Refills Prov:RITO [address]AG[address] SUPERVISOR 08/01/24 Ibuprofen Micronized (Ibuprofen) 600 Mg Tab, 600 MG PO Q6HP PRN, #30 TAB Prov:ERIN BARAHONA PAC 07/01/24 Acetaminophen (Acetaminophen) 500 Mg Tab, 500 MG PO Q4HP PRN, #30 TAB Prov:ERIN BARAHONA PAC 07/01/24 Cephalexin (KEFLEX CAPSULE) 250 Mg Cp, 1 CAP PO QID for 7 Days, #28 CAP Prov:ERIN BARAHONA PAC 07/01/24 Penicillin V Potassium (Veetids) 500 Mg Tab, 1 TAB PO BID for 10 Days, #20 TAB 0 Refills Prov:RITO HAG[address] SUPERVISOR 09/14/23 Lidocaine HCl (Mouth-Throat) (Lidocaine HCl Viscous) 2 % Lynn, 15 ML MT TIDP PRN for 10 Days, #1 BOTTLE 0 Refills Prov:RITO [address] SUPERVISOR 09/14/23 Naproxen (Naproxen) 500 Mg Tab, 500 MG PO BIDPC for 10 Days, #20 TAB 0 Refills Prov:RITO [address] SUPERVISOR 09/14/23 Budesonide (Inhalation) (Budesonide) 1 Mg/2 Ml [place], 1 MG IN ONCE for 5 Days, #10 ML Prov:GREYLOLY PAC 03/27/23 Tramadol Hcl (Tramadol Hcl) 50 Mg Tab, 50 MG PO BID for 5 Days, #10 TAB Prov:ROD MCMAHON MD 03/02/22 Dicyclomine Hcl (BENTYL CAPSULE) 10 Mg Cp, 1 CAP PO TID for 10 Days, #90 CAP 11 Refills Prov:ROD MCMAHON MD 03/02/22 Diclofenac Potassium (Diclofenac Potassium) 50 Mg Tab, 1 TAB PO TIDP for 10 Days, #30 TAB Prov:ROD MCMAHON MD 03/02/22 Pantoprazole Sodium Sesquihydr (Protonix) 40 Mg Tab, 40 MG PO DAILY for 15 Days, #15 TAB Prov:ROD MCMAHON MD 03/02/22 Current Medications Current Medications Medications (Trade) Dose Ordered Sig/Thomas Route PRN Reason Start Time Stop Time Status Last Admin Sodium Chloride (Saline Lock Ns) 10 ml Q8HR IV 03/13/25 22:00 Sodium Chloride 1,000 ml @ 60 mls/hr [id number] IV 03/13/25 15:30 Acetaminophen/ Hydrocodone Bitart ([place] 5/325MG Tab) 1 tab Q4HP PRN PO MODERATE PAIN (4-6 PAIN SCALE) 03/13/25 15:30 Ondansetron HCl (Zofran) 4 mg Q4HP PRN IV NAUSEA / VOMITING 03/13/25 15:30 Acetaminophen (Tylenol Tablet) 650 mg Q6HP PRN PO PAIN SCALE 1-3 OR TEMP>100.4 03/13/25 15:30 Nitroglycerin (Ntrostat Sublingual) 0.4 mg Q5MINP PRN SL FOR CHEST PAIN 03/13/25 15:30 Morphine Sulfate 2 mg Q30M PRN IV FOR CHEST PAIN 03/13/25 15:30 Diagnostic Test (Pha) (Accu-Chek Comfort Curve T) 1 strip ACHS 03/13/25 17:00 03/13/25 17:59 Insulin Human Regular (InsuLIN R) ACHS SC 03/13/25 17:00 Dextrose 50 ml UD PRN IV Blood Sugar LESS THAN 60 03/13/25 15:30 Pantoprazole Sodium (Protonix) 40 mg DAILY IV 03/14/25 10:00 Aspirin (Ecotrin Enteric Coated Tablet) 81 mg DAILY PO 03/14/25 10:00 Amlodipine Besylate (Norvasc Tablet) 5 mg DAILY PO 03/14/25 10:00 Vital Signs Vital Signs Date Time Temp Pulse Resp B/P (MAP) Pulse Ox O2 Delivery O2 Flow Rate FiO2 03/13/25 17:12 97.4 61 16 120/70 (87) 100 97.4 03/13/25 11:12 Room Air* 0 21 Physical Exam General Appearance: Alert, Oriented X3, Cooperative, Not in acute distress HEENT: Atraumatic, Mucous membranes moist/pink Respiratory: Clear to auscultation, Normal air movement, No added sounds Cardiovascular: Regular rate, Normal S1, Normal S2, No murmurs Abdomen: Right upper quadrant tenderness noted on examination. Extremities: No edema, Normal pulses, No tenderness/swelling Skin: No Significant rash, except past surgical scars Neuro: Normal speech, sensorimotor deficits none Psych/Mental Status: Mental status NL, Mood NL Labs/Diagnostic Data Labs Test 03/13/25 17:28 03/13/25 16:47 03/13/25 12:48 03/13/25 10:48 Range/Units POC Glucose 91 70-106 mg/dl Iron Level 26 L 50-170 ug/dL Total Iron Binding Capacity 396 250-425 ug/dL Percent Iron Saturation 6.6 L 15-50 % White Blood Count 7.7 4.4-10.8 10^3/uL Red Blood Count 5.31 H 4.0-5.20 10^6/uL Hemoglobin 9.0 L 12.2-16.2 g/dL Hematocrit 30.6 L 36.0-46.0 % Mean Corpuscular Volume 57.7 L 80.0-100.0 fL Mean Corpuscular Hemoglobin 17.0 L 28.0-32.0 pg Mean Corpuscular Hemoglobin Concent 29.5 L 32.0-36.0 g/dL Red Cell Distribution Width 20.8 H 11.8-14.3 % Platelet Count 356 140-450 10^3/uL Mean Platelet Volume 8.2 6.9-10.8 fL Neutrophils (%) (Auto) 68.5 37.0-80.0 % Lymphocytes (%) (Auto) 22.6 10.0-50.0 % Monocytes (%) (Auto) 4.6 0.0-12.0 % Eosinophils (%) (Auto) 3.7 0.0-7.0 % Basophils (%) (Auto) 0.6 0.0-2.0 % Neutrophils # (Auto) 5.3 1.6-8.6 10 ^3/uL Lymphocytes # (Auto) 1.8 0.4-5.4 10 ^3/uL Monocytes # (Auto) 0.4 0-1.3 10 ^3/uL Eosinophils # (Auto) 0.3 0-0.8 10 ^3/uL Basophils # (Auto) 0 0-0.2 10 ^3/uL Nucleated Red Blood Cells 0.0 % Platelet Estimate Adequate Hypochromasia (manual) Marked Anisocytosis (manual) Slight Microcytosis Marked Prothrombin Time 10.3 9.3-11.8 sec Prothrombin Time INR 0.97 0.9-1.15 Activated Partial Thromboplast Time 24.9 24.5-34.5 SEC Sodium Level 138 136-145 mmol/L Potassium Level 3.6 3.5-5.1 mmol/L Chloride Level 104 98-107 mmol/L Carbon Dioxide Level 26 20-31 mmol/L Anion Gap 8 5-15 Blood Urea Nitrogen 10 9-23 mg/dL Creatinine 0.59 0.550-1.02 mg/dL Glomerular Filtration Rate Calc 109 >90 mL/min BUN/Creatinine Ratio 16.9 10.0-20.0 Serum Glucose 106 74-106 mg/dL Hemoglobin A1c 7.1 H <5.7 % A1C Calcium Level 9.4 8.7-10.4 mg/dL Total Bilirubin 0.5 0.2-1.0 mg/dL Direct Bilirubin 0.1 <0.3 mg/dL Aspartate Amino Transferase (AST) 26 13-40 U/L Alanine Aminotransferase (ALT) 26 7-40 U/L Alkaline Phosphatase 55 46-116 U/L Total Protein 8.3 H 5.7-8.2 g/dL Albumin 4.5 3.2-4.8 g/dL Thyroid Stimulating Hormone (TSH) 0.60 0.55-4.78 uIU/mL Problems(with codes): (1) Melena (2) Intractable abdominal pain (3) Microcytic anemia Plan/Recommendation Plan I suspect that the patient has NSAID related gastropathy or peptic ulcer disease Protonix 40 mg IV q.12 hours Carafate suspension 1 g p.o. 4 times a day Discontinue NSAIDs, patient appears to be taking multiple NSAIDs NPO after midnight for possible endoscopy on 03/14/2025 Plan discussed with: Other (Dr Fernandez) VENECIA WHALEN MD Mar 13, 2025 18:35
[2025-03-13 18:57] LABS: Amphetamine Screen, Urine Neg (NEGATIVE); Barbiturate Scree,Urine Neg (NEGATIVE); Benzodiazephine Screen, Urine Neg (NEGATIVE); Cannabinoid Screen, Urine Neg (NEGATIVE); Cocaine Screen, Urine Neg (NEGATIVE); Opiate Scree,Urine Pos (NEGATIVE)
[2025-03-13] MEDS: SODIUM CHLORIDE 0.9% 1,000 ML IV SCH (19:11)
[2025-03-13 19:32] LABS: Urine Protein, UAD 2+ (Negative); Urine WBC Clumps PRESENT /hpf (None Seen)
[2025-03-13] MEDS: SODIUM CHLOR 0.9% PF (SALINE LOCK) 10ML VIAL/SYR IV SCH (22:00)
[2025-03-13 22:49] VITALS: BP 126/65; PULSE 71; RESP 18; TEMP 98.1; O2SAT 100
[2025-03-13 23:00] VITALS: RESP 18
[2025-03-13 23:17] VITALS: PULSE 78; RESP 18; TEMP 98.7; O2SAT 100
[2025-03-13] MEDS: HYDROcodone-ACET 5/325MG TAB PO PRN (23:54)
[2025-03-14] VITALS (7 sets, daily range): BP systolic 109–127; BP diastolic 60–81; PULSE 72–91; RESP 16–18; TEMP 97.6–98.6; O2SAT 96–98
[2025-03-14 06:55] LABS: Hemoglobin 8.4 g/dL (12.2-16.2)
[2025-03-14 06:58] LABS: Hematocrit 28.3 % (36.0-46.0); Mean Corpuscular Hemoglobin 17.1 pg (28.0-32.0); Mean Corpuscular Volume 57.6 fL (80.0-100.0); Nucleated Red Blood Cells % 0.1 %
[2025-03-14 07:18] LABS: Alanine Aminotransferase 21 U/L (7-40); Albumin 4.0 g/dL (3.2-4.8); Alkaline Phosphatase 50 U/L (46-116); Anion Gap 9 (5-15); BUN/Creatinine Ratio 14.8 (10.0-20.0); Calcium 9.2 mg/dL (8.7-10.4); Carbon Dioxide 23 mmol/L (20-31); Chloride 106 mmol/L (98-107); Glucose 98 mg/dL (74-106); Sodium 138 mmol/L (136-145); Total Protein 7.5 g/dL (5.7-8.2)
[2025-03-14 07:19] LABS: Bilirubin, Total 0.3 mg/dL (0.2-1.0); Blood Urea Nitrogen 8 mg/dL (9-23); Potassium 3.4 mmol/L (3.5-5.1)
[2025-03-14] MEDS: ACETAMINOPHEN 325 MG TAB PO PRN (08:09)
[2025-03-14] MEDS: ONDANSETRON HCL 4 MG/2 ML VIAL IV PRN (08:15)
[2025-03-14] MEDS: ASPirin-EC 81 mg tab PO SCH (10:44)
[2025-03-14] MEDS: PANTOPRAZOLE 40 MG/10 ML VIAL INJ IV SCH (10:44)
[2025-03-14] MEDS ORDERED: MIDAZOLAM HCL 2MG/2ML 2ml VIAL (1mg/ml) ONE (12:25)
[2025-03-14] MEDS ORDERED: GLYCOPYRROLATE 0.2 MG/ML 1ML VIAL ONE (12:25)
[2025-03-14] MEDS ORDERED: ONDANSETRON HCL 4 MG/2 ML VIAL ONE (12:25)
[2025-03-14] MEDS ORDERED: fentaNYL CITRATE 100 MCG/2 ML VL ONE (12:25)
[2025-03-14] MEDS ORDERED: LIDOCAINE 2% (LOCAL ANESTH.) PF 5ml SDV ONE (12:25)
[2025-03-14] MEDS ORDERED: PROPOFOL 10 MG/ML 20 ML IV ONE (12:25)
--- NOTE | 2025-03-14 13:18 | DVHOP2 ---
Operative Report DATE OF OPERATION: 03/14/25 PROCEDURE: Upper Endoscopy with biopsy. PREOPERATIVE INDICATION: The patient is a 49 -year-old female undergoing endoscopy for melena and abdominal pain POSTOPERATIVE DIAGNOSES: 1. 2 cm sliding-type hiatal hernia with grade A to B linear erosive esophagitis from which biopsies were obtained 2. Mild antral gastritis with a pre-pyloric antral gastric erosions 3. Otherwise normal examination up to the 2nd and 3rd part of the duodenum with no fresh or old blood in the upper GI tract PROCEDURE PERFORMED BY: Venecia Kirkland GI NURSE: Audrey SCOPE: Olympus videoendoscope. ASA CLASS: 2 PREOPERATIVE MEDICATIONS: Mac sedation, Dr. Tavera PROCEDURE IN DETAIL: After obtaining an informed consent, the patient was placed on left lateral decubitus position. The patient was then sedated with the above medications. A bite block was placed between her teeth. The endoscope was then passed through the oropharynx, into the esophagus, and through the stomach and pylorus up to the second and third part of the duodenum. The endoscope was then withdrawn. The 2nd and 3rd part of the duodenum and the duodenal bulb were normal. Duodenal biopsies were obtained The pre-pyloric area antrum and distal body showed [id number] gastritis with pre-pyloric antral gastric erosions On retroflexion the fundus and cardia were normal. There was no fresh or old blood in the upper GI tract The endoscope was then withdrawn into distal esophagus where patient had a 2 cm sliding-type hiatal hernia with grade A to B linear erosive esophagitis GE junction biopsies were obtained. The remaining distal and proximal esophagus and oropharynx were unremarkable The patient tolerated the procedure well without difficulty. COMPLICATIONS : None SPECIMENS: Duodenal biopsies Gastric biopsies GE junction biopsies DISPOSITION: Transfer back to the floor Stable PLAN: 1. Await for biopsy result 2. Will place pt on Protonix 40 mg bid 3. Carafate 1 g p.o. twice a day 4. DC aspirin NSAIDs smoking alcohol 5. Outpatient follow up with me in 4-6 weeks to review results and discuss further management VENECIA KIRKLAND MD Mar 14, 2025 13:18
--- NOTE | 2025-03-14 13:44 | DVHPN2 ---
Reviewed: Care Plan, H&P, Labs, Medications, Previous Orders, Radiology Changes from previous H/P or p: No Changes Objective Vitals Vital Signs Date Time Temp Pulse Resp B/P (MAP) Pulse Ox O2 Delivery O2 Flow Rate FiO2 03/14/25 10:44 120/81 03/14/25 09:00 98.6 84 16 97 98.6 03/14/25 08:00 Room Air* 0 21 Intake/Output Intake and Output 03/14/25 07:00 # Voids 1 Medications Current Medications Medications Dose Ordered Sig/Thomas Route Start Time Stop Time Status Last Admin Dose Admin Sodium Chloride 10 ml Q8HR IV 03/13/25 22:00 03/14/25 05:36 10 ML Sodium Chloride 1,000 ml @ 60 mls/hr [id number] IV 03/13/25 15:30 03/14/25 08:20 60 MLS/HR Acetaminophen/ Hydrocodone Bitart 1 tab Q4HP PRN PO 03/13/25 15:30 03/14/25 04:49 1 TAB Ondansetron HCl 4 mg Q4HP PRN IV 03/13/25 15:30 03/14/25 08:15 4 MG Acetaminophen 650 mg Q6HP PRN PO 03/13/25 15:30 03/14/25 08:09 650 MG Nitroglycerin 0.4 mg Q5MINP PRN SL 03/13/25 15:30 Morphine Sulfate 2 mg Q30M PRN IV 03/13/25 15:30 Diagnostic Test (Pha) 1 strip ACHS 03/13/25 17:00 03/14/25 06:14 1 STRIP Insulin Human Regular ACHS SC 03/13/25 17:00 Dextrose 50 ml UD PRN IV 03/13/25 15:30 Pantoprazole Sodium 40 mg DAILY IV 03/14/25 10:00 03/14/25 10:44 40 MG Aspirin 81 mg DAILY PO 03/14/25 10:00 03/14/25 10:44 81 MG Amlodipine Besylate 5 mg DAILY PO 03/14/25 10:00 03/14/25 10:44 5 MG Pantoprazole Sodium 40 mg BID@0600,1700 PO 03/14/25 17:00 UNV Sucralfate 1 gm TID@0600,1130,2200 PO 03/14/25 22:00 UNV Laboratory Results Laboratory Tests 03/14/25 05:39 Chemistry Test 03/14/25 05:39 Albumin 4.0 g/dL (3.2-4.8) Calcium Level 9.2 mg/dL (8.7-10.4) Total Protein 7.5 g/dL (5.7-8.2) LFT Test 03/14/25 05:39 Alanine Aminotransferase (ALT) 21 U/L (7-40) Alkaline Phosphatase 50 U/L (46-116) Aspartate Amino Transferase (AST) 23 U/L (13-40) Total Bilirubin 0.3 mg/dL (0.2-1.0) Urinalysis Test 03/13/25 12:48 Urine Color Red (Yellow) H Urine Clarity Ex.turbid (Clear) Urine pH 5.5 (5.0-9.0) Urine Specific [place] 1.023 (1.001-1.035) Urine Protein 2+ (Negative) H Urine Ketones Trace (Negative) Urine Blood 3+ /uL (Negative) H Urine Nitrite Negative (Negative) Urine Bilirubin Negative (Negative) Urine Urobilinogen Normal mg/dL (Negative) Urine Leukocyte Esterase 2+ /uL (Negative) Urine RBC 44102 /hpf (0 - 4) Urine WBC Clumps Present /hpf (None Seen) Urine Microscopic WBC 2227 /HPF (0-5) H Urine Squamous Epithelial Cells Few /hpf (<5) Urine Bacteria Many /hpf (None Seen) H Urine Mucus Few (None Seen) Urine Glucose Normal mg/dL (Normal) Labs and/or images reviewed: Labs reviewed by me, Image(s) reviewed by me Assessment/Plan Assessment/Plan Lower GI bleed Melena R/o gallstones/ acute cholecystitis Microcytic, hypochromic anemia Type 2 diabetes Hypertension: Amlodipine History of brain aneurysm EGD by Dr. Kylee Kirkland with the following findings: Grade B linear erosive esophagitis and mild antral gastritis with pre-pyloric antral gastric erosions Plan discussed with: Patient Date of Service: Mar 14, 2025 Billing Provider: KHLOE OSCAR MD Common Visit Codes: [id number] INP/OBS CARE(HIGH), 09716-CAP/OBS SAME DATE (LOW) KHLOE OSCAR MD Mar 14, 2025 13:44
[2025-03-14] MEDS: PANTOPRAZOLE 40 MG TAB PO SCH (17:59)
[2025-03-14] MEDS: SUCRALFATE 1 GM/10 ML ORAL SUSP PO SCH (21:42)
[2025-03-15 01:00] VITALS: BP 109/63; PULSE 90; RESP 18; TEMP 97.9; O2SAT 96
[2025-03-15 05:00] VITALS: BP 120/60; PULSE 83; RESP 18; TEMP 97.6; O2SAT 96
[2025-03-15 06:52] LABS: Mean Corpuscular Volume 58.3 fL (80.0-100.0)
[2025-03-15 06:54] LABS: Hematocrit 27.3 % (36.0-46.0); Hemoglobin 8.1 g/dL (12.2-16.2); Mean Corpuscular Hemoglobin 17.2 pg (28.0-32.0); Nucleated Red Blood Cells % 0.1 %
[2025-03-15 08:30] VITALS: BP 126/80; PULSE 86; RESP 20; TEMP 97.6; O2SAT 96
[2025-03-15 10:37] LABS: Hepatitis B Surface Antigen Negative (Negative)
[2025-03-15 10:58] LABS: Hepatitis C Antibody Negative (Negative)
[2025-03-15] MEDS ORDERED: PANT40T PO (12:41)
[2025-03-15] MEDS ORDERED: SUCR1TAB31 PO (12:41)
--- NOTE | 2025-03-15 12:48 | DVHDS2 ---
Discharge Summary Date of Admission Mar 13, 2025 at 15:20 Date of Discharge: Mar 15, 2025 Admitting Diagnosis Epigastric abdominal pain Wounds: EGD Labs/Diagnostic Data: Laboratory Results Test 03/15/25 12:16 03/15/25 05:58 03/14/25 05:39 03/14/25 04:45 POC Glucose 118 mg/dl (70-106) White Blood Count 7.4 10^3/uL (4.4-10.8) Red Blood Count 4.68 10^6/uL (4.0-5.20) Hemoglobin 8.1 g/dL (12.2-16.2) Hematocrit 27.3 % (36.0-46.0) Mean Corpuscular Volume 58.3 fL (80.0-100.0) Mean Corpuscular Hemoglobin 17.2 pg (28.0-32.0) Mean Corpuscular Hemoglobin Concent 29.5 g/dL (32.0-36.0) Red Cell Distribution Width 20.8 % (11.8-14.3) Platelet Count 289 10^3/uL (140-450) Mean Platelet Volume 8.2 fL (6.9-10.8) Neutrophils (%) (Auto) 61.9 % (37.0-80.0) Lymphocytes (%) (Auto) 26.1 % (10.0-50.0) Monocytes (%) (Auto) 5.7 % (0.0-12.0) Eosinophils (%) (Auto) 5.6 % (0.0-7.0) Basophils (%) (Auto) 0.7 % (0.0-2.0) Neutrophils # (Auto) 4.6 10 ^3/uL (1.6-8.6) Lymphocytes # (Auto) 1.9 10 ^3/uL (0.4-5.4) Monocytes # (Auto) 0.4 10 ^3/uL (0-1.3) Eosinophils # (Auto) 0.4 10 ^3/uL (0-0.8) Basophils # (Auto) 0.1 10 ^3/uL (0-0.2) Nucleated Red Blood Cells 0.1 % Sodium Level 138 mmol/L (136-145) Potassium Level 3.4 mmol/L (3.5-5.1) Chloride Level 106 mmol/L (98-107) Carbon Dioxide Level 23 mmol/L (20-31) Anion Gap 9 (5-15) Blood Urea Nitrogen 8 mg/dL (9-23) Creatinine 0.54 mg/dL (0.550-1.02) Glomerular Filtration Rate Calc 111 mL/min (>90) BUN/Creatinine Ratio 14.8 (10.0-20.0) Serum Glucose 98 mg/dL (74-106) Calcium Level 9.2 mg/dL (8.7-10.4) Total Bilirubin 0.3 mg/dL (0.2-1.0) Aspartate Amino Transferase (AST) 23 U/L (13-40) Alanine Aminotransferase (ALT) 21 U/L (7-40) Alkaline Phosphatase 50 U/L (46-116) Total Protein 7.5 g/dL (5.7-8.2) Albumin 4.0 g/dL (3.2-4.8) Hepatitis B Surface Antigen Negative (Negative) Hepatitis C Antibody Negative (Negative) Stool Occult Blood Negative (Negative) Stool Occult Blood Sample #3 (Negative) Test 03/13/25 16:47 03/13/25 12:48 03/13/25 10:48 Iron Level 26 ug/dL (50-170) Total Iron Binding Capacity 396 ug/dL (250-425) Percent Iron Saturation 6.6 % (15-50) Urine Color Red (Yellow) Urine Clarity Ex.turbid (Clear) Urine pH 5.5 (5.0-9.0) Urine Specific [place] 1.023 (1.001-1.035) Urine Protein 2+ (Negative) Urine Ketones Trace (Negative) Urine Blood 3+ /uL (Negative) Urine Nitrite Negative (Negative) Urine Bilirubin Negative (Negative) Urine Urobilinogen Normal mg/dL (Negative) Urine Leukocyte Esterase 2+ /uL (Negative) Urine RBC 86790 /hpf (0 - 4) Urine WBC Clumps Present /hpf (None Seen) Urine Microscopic WBC 2227 /HPF (0-5) Urine Squamous Epithelial Cells Few /hpf (<5) Urine Bacteria Many /hpf (None Seen) Urine Mucus Few (None Seen) Urine Glucose Normal mg/dL (Normal) Urine Opiates Screen Pos (NEGATIVE) Urine Fentanyl Screen Neg (NEGATIVE) Urine Barbiturates Screen Neg (NEGATIVE) Urine Phencyclidine Screen Pos (NEGATIVE) Urine Amphetamines Screen Neg (NEGATIVE) Urine Benzodiazepines Screen Neg (NEGATIVE) Urine Cocaine Screen Neg (NEGATIVE) Urine Cannabinoids Screen Neg (NEGATIVE) Platelet Estimate Adequate Hypochromasia (manual) Marked Anisocytosis (manual) Slight Microcytosis Marked Prothrombin Time 10.3 sec (9.3-11.8) Prothrombin Time INR 0.97 (0.9-1.15) Activated Partial Thromboplast Time 24.9 SEC (24.5-34.5) Hemoglobin A1c 7.1 % A1C (<5.7) Direct Bilirubin 0.1 mg/dL (<0.3) Thyroid Stimulating Hormone (TSH) 0.60 uIU/mL (0.55-4.78) Other Laboratory Tests 03/15/25 05:58 03/14/25 05:39 Brief Hx & Hospital Course: 49-year-old female with a history of hypertension diabetes brain aneurysm came in for lower GI bleed underwent EGD by Dr. Kylee Kirkland found to have grade B linear erosive esophagitis and mild gastric antral gastritis pre-pyloric antral gastritis. Biopsy report pending placed on pantoprazole Carafate patient feels better and wants to go home. Discharged home prescription for pantoprazole Carafate transmitted to pharmacy. She was advised to follow up with the GI Dr. Kylee Kirkland in 10 days for the biopsy result Consults/Reason for consult GI Dr. Kylee Kirkland Operations or Procedures EGD Condition at Discharge: Fair Final Diagnosis/Problems List Lower GI bleed Melena Microcytic, hypochromic anemia Type 2 diabetes Hypertension: Amlodipine History of brain aneurysm EGD by Dr. Kylee Kirkland with the following findings: Grade B linear erosive esophagitis and mild antral gastritis with pre-pyloric antral gastric erosions Discharge Disposition: Home Discharge Instruct/Medications Diet: Regular Activity: Light activity Medications: Pantoprazole Carafate Transmitted to the pharmacy Scheduled Budesonide (Inhalation) (Budesonide), 1 MG IN ONCE Cephalexin (Keflex Capsule), 1 CAP PO QID Diclofenac Potassium (Diclofenac Potassium), 1 TAB PO TIDP Dicyclomine Hcl (Bentyl Capsule), 1 CAP PO TID Naproxen (Naproxen), 500 MG PO BIDPC Naproxen (Naproxen), 1 TAB PO BIDPC Pantoprazole Sodium Sesquihydr (Protonix), 40 MG PO DAILY Pantoprazole Sodium Sesquihydr (Pantoprazole Sodium), 40 MG PO BID Penicillin V Potassium (Veetids), 1 TAB PO BID Sucralfate (Carafate), 1 GM PO QID Tramadol Hcl (Tramadol Hcl), 50 MG PO BID Scheduled PRN Acetaminophen (Acetaminophen), 500 MG PO Q4HP PRN Ibuprofen Micronized (Ibuprofen), 600 MG PO Q6HP PRN Lidocaine HCl (Mouth-Throat) (Lidocaine HCl Viscous), 15 ML MT TIDP PRN Methocarbamol (Methocarbamol), 500 MG PO Q6HP PRN 35 (Time taken for discharge summary 35 minutes) Discharge Statement: "Patient was advised to return to the ER or call 911 if any headaches, dizziness, shortness of breath, chest pain, abdominal pain, bleeding, fevers, or worsening of medical condition. Patient was counseled about treatment plan, medications, possible side effects, patientverbalized understanding. All questions were answered to the best of my ability. This discharge took greater then 30 minutes in planning, reviewing documentation, counseling the patient, and discussing with other team members." ASSESSMENT ASSESSMENT Hospital Course Uneventful Assessment Lower GI bleed Melena Microcytic, hypochromic anemia Type 2 diabetes Hypertension: Amlodipine History of brain aneurysm EGD by Dr. Kylee Kirkland with the following findings: Grade B linear erosive esophagitis and mild antral gastritis with pre-pyloric antral gastric erosions Date of Service: Mar 15, 2025 Billing Provider: KHLOE OSCAR MD Common Visit Codes: [id number] INP/OBS CARE(HIGH) KHLOE OSCAR MD Mar 15, 2025 12:48
[2025-03-15 13:30] VITALS: BP 126/73; PULSE 73; RESP 16; TEMP 97.7; O2SAT 99
[2025-03-15 14:05] VITALS: BP 126/80; TEMP 36.4
== END 2025-03-15 15:48 | disposition home or self-care (01) | DRG 241 ==
LOC: ER 09:52 → OVERFLOW 15:20 → WEST WING 22:49
PROVIDERS: ADMIT Family Medicine; ATTEND Family Medicine
PROC: 0DB68ZX Excision of Stomach, Via Natural or Artificial Opening Endoscopic, Diagnostic (ICD-10-PCS; 2025-03-14)
PROC: 0DB48ZX Excision of Esophagogastric Junction, Via Natural or Artificial Opening Endoscopic, Diagnostic (ICD-10-PCS; 2025-03-14)
PROC: 0DB98ZX Excision of Duodenum, Via Natural or Artificial Opening Endoscopic, Diagnostic (ICD-10-PCS; principal; 2025-03-14 13:00)
DX: K25.4 Chronic or unspecified gastric ulcer with hemorrhage (principal); K22.11 Ulcer of esophagus with bleeding; E11.9 Type 2 diabetes mellitus without complications; D50.9 Iron deficiency anemia, unspecified; I10 Essential (primary) hypertension; K44.9 Diaphragmatic hernia without obstruction or gangrene; K29.71 Gastritis, unspecified, with bleeding; Z88.8 Allergy status to other drugs, medicaments and biological substances; Z86.73 Personal history of transient ischemic attack (TIA), and cerebral infarction without residual deficits; Z98.51 Tubal ligation status; Z83.3 Family history of diabetes mellitus; Z82.49 Family history of ischemic heart disease and other diseases of the circulatory system
CPT/HCPCS: 36415; 74176; 76705; 80048; 80053; 80076; 80307; 81001; 82270; 82962; 83036; 83540; 83550; 84443; 85025; 85610; 85730; 86803; 86850; 86900; 86901; 87340; G0378; J2003; J2250; J2405; J2470; J2704

== ENCOUNTER 2025-03-17 12:27 | Inpatient (IN) | payer OTHER ==
[~2025-03-17] VITALS: Ht 160 cm; Wt 91.4 kg
[~2025-03-17 12:27] MED LIST changes: +PANT40T PO; +SUCR1TAB31 PO
--- NOTE | 2025-03-17 13:22 | ED.PDOC ---
GI ASSESSMENT HPI Comments 49 y.o female with history of diabetes mellitus, hypertension, and brain aneurysm, presents to the ED for a chief complaint right abdominal pain associated with bloody stool. Patient states being admitted on 03/13/25 at this hospital for same pain, was admitted and had an EGD done on 03/14/25. EGD findings>> 1. 2 cm sliding-type hiatal hernia with grade A to B linear erosive esophagitis from which biopsies were obtained 2. Mild antral gastritis with a pre-pyloric antral gastric erosions 3. Otherwise normal examination up to the 2nd and 3rd part of the duodenum with no fresh or old blood in the upper GI tract Patient was d/c with protonix 40mg and Carafate and was told to follow up with GI, however states pain has been ongoing with no alleviating factors. she states pain is constant associated with blood stool. She denies any blood clots, nausea, vomiting, diarrhea, fever, or chills. Chief Complaint: Abdominal Pain Time Seen by MD: 13:10 Primary Care Provider: AIDEN Suarez Notes: Nurses Notes, Medications, Allergies Allergies: Coded Allergies: Prochlorperazine (Verified Allergy, Unknown, 03/02/22) Home Meds Active Scripts Sucralfate (CARAFATE) 1 Gm Tab, 1 GM PO QID, #120 TAB Prov:KHLOE OSCAR MD 03/15/25 Pantoprazole Sodium Sesquihydr (Pantoprazole Sodium) 40 Mg Tab, 40 MG PO BID, #60 TAB Prov:KHLOE OSCAR MD 03/15/25 Naproxen (Naproxen) 375 Mg Tab, 1 TAB PO BIDPC for 10 Days, #20 TAB 0 Refills Prov:RITO HAGEN NP 08/01/24 Methocarbamol (Methocarbamol) 500 Mg Tab, 500 MG PO Q6HP PRN for 10 Days, #40 TAB 0 Refills Prov:RITO HAGEN NP 08/01/24 Ibuprofen Micronized (Ibuprofen) 600 Mg Tab, 600 MG PO Q6HP PRN, #30 TAB Prov:ERIN BARAHONA PAC 07/01/24 Acetaminophen (Acetaminophen) 500 Mg Tab, 500 MG PO Q4HP PRN, #30 TAB Prov:ERIN BARAHONA PAC 07/01/24 Cephalexin (KEFLEX CAPSULE) 250 Mg Cp, 1 CAP PO QID for 7 Days, #28 CAP Prov:ERIN BARAHONA PAC 07/01/24 Penicillin V Potassium (Veetids) 500 Mg Tab, 1 TAB PO BID for 10 Days, #20 TAB 0 Refills Prov:RITO HAGEN GOLF TECHNICIAN 09/14/23 Lidocaine HCl (Mouth-Throat) (Lidocaine HCl Viscous) 2 % Lynn, 15 ML MT TIDP PRN for 10 Days, #1 BOTTLE 0 Refills Prov:RITO HAGEN GOLF TECHNICIAN 09/14/23 Naproxen (Naproxen) 500 Mg Tab, 500 MG PO BIDPC for 10 Days, #20 TAB 0 Refills Prov:RITO HAGEN GOLF TECHNICIAN 09/14/23 Budesonide (Inhalation) (Budesonide) 1 Mg/2 Ml [place], 1 MG IN ONCE for 5 Days, #10 ML Prov:LOLY GREY PAC 03/27/23 Tramadol Hcl (Tramadol Hcl) 50 Mg Tab, 50 MG PO BID for 5 Days, #10 TAB Prov:ROD MCMAHON MD 03/02/22 Dicyclomine Hcl (BENTYL CAPSULE) 10 Mg Cp, 1 CAP PO TID for 10 Days, #90 CAP 11 Refills Prov:ROD MCMAHON MD 03/02/22 Diclofenac Potassium (Diclofenac Potassium) 50 Mg Tab, 1 TAB PO TIDP for 10 Days, #30 TAB Prov:ROD MCMAHON MD 03/02/22 Pantoprazole Sodium Sesquihydr (Protonix) 40 Mg Tab, 40 MG PO DAILY for 15 Days, #15 TAB Prov:ROD MCMAHON MD 03/02/22 Information Source: Patient Mode of Arrival: Ambulatory Timing: Days Duration: Since onset Quality: Sharp Vomitus: None Stool: Blood Streaked Severity: Moderate Recent: None Recent Hx of: Other Pain Location: RUQ, RLQ Modifying Factors: Nothing Associated sign and symptoms: Abdominal Pain, Blood in Stool Past Medical History PAST MEDICAL HISTORY: DM, HTN 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, 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 Hx Family History Family History: Reviewed,noncontributory to illness, No family hx of Cancer, No family hx of Heart nehemias, No family hx ofKidney nehemias, No family hx of Liver nehemias, No family hx of Lung nehemias, No family hx of Stroke, Family hx of DM, Family hx of HTN Social History Smoker: Non-Smoker Alcohol: Denies ETOH Use Drugs: Denies Drug Use Lives In: Home Constitutional: denies: chills, diaphoresis, fatigue, fever, malaise, sweats, weakness, others EENTM: denies: blurred vision, double vision, ear bleeding, ear discharge, ear drainage, ear pain, ear ringing, eye pain, eye redness, hearing loss, mouth pain, mouth swelling, nasal discharge, nose bleeding, nose congestion, nose pa in, photophobia, tearing, throat pain, throat swelling, voice changes, others Respiratory: denies: cough, hemoptysis, orthopnea, SOB at rest, shortness of breath, SOB with excertion, stridor, wheezing, others Cardiovascular: denies: chest pain, dizzy spells, diaphoresis, Dyspnea on exertion, edema, irregular heart beat, left arm pain, lightheadedness, palpitations, PND, syncope, others Gastrointestinal: reports: abdominal pain, rectal bleeding; denies: abdomen distended, blood streaked bowels, constipated, diarrhea, dysphagia, difficulty swallowing, hematemesis, melena, nausea, poor appetite, poor fluid intake, rectal pain, vomiting, others Genitourinary: denies: abnormal vagina bleeding, burning, dyspareunia, dysuria, flank pain, frequency, hematuria, incontinence, pain, , vagina discharge, urgency, others Neurological: denies: dizziness, fainting, headache, left sided numbness, left sided weakness, numbness, paresthesia, pre-existing deficit, right sided numbness, right sided weakness, seizure, speech problems, tingling, tremors, weakness, others Musculoskeletal: denies: back pain, gout, joint pain, joint swelling, muscle pain, muscle stiffness, neck pain, others Integumetry: denies: bruises, change in color, change in hair/nails, dryness, laceration, lesions, lumps, rash, wounds, others Allergic/Immunocompromised: denies: Difficulty Healing, Frequent Infections, Hives, Itching, others Hematologic/Lymphatic: denies: anemia, blood clots, easy bleeding, easy bruising, swollen glands, others Endocrine: denies: excessive hunger, excessive sweating, excessive thirst, excessive urination, flushing, intolerance to cold, intolerance to heat, unexplained weight gain, unexplained weight loss, others Psychiatric: denies: anxiety, bipolar disorder, depression, hopeless, panic disorder, schizophrenia, sleepless, suicidal, others All Other Systems: Reviewed and Negative Physical Exam General Appearance: Moderate Distress HEENT: Normal ENT Inspection, Pharynx Normal, TMs Normal Neck: Full Range of Motion, Non-Tender, Normal, Normal Inspection Respiratory: Chest Non-Tender, Lungs Clear, No Accessory Muscle Use, No Respiratory Distress, Normal Breath Sounds Cardiovascular: No Edema, No JVD, No Murmur, No Gallop, Normal Peripheral Pulses, Regular Rate/Rhythm Breast Exam: Deferred Gastrointestinal: No Organomegaly, Non Tender, No Pulsatile Mass, Normal Bowel Sounds, Soft Genitalia: Deferred Pelvic: Deferred Rectal: Deferred Extremities: No calf tenderness, Normal capillary refill, Normal inspection, Normal range of motion, Non-tender, No pedal edema Musculoskeletal : Apperance: Normal Neurologic: Alert, farm 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 Was a procedure done?: No GI differential Dx Differential Diagnosis: Constipation, Diverticular disease, Esophageal rupture, Esophagitis, Gastritis/PUD, GI hemorrhage, Inflammatory BD, Pancreatitis, Esophageal Varicies, Stress Ulcer X-Ray, Labs, Meds, VS Vital Signs Date Time Temp Pulse Resp B/P (MAP) Pulse Ox O2 Delivery O2 Flow Rate FiO2 03/17/25 16:07 91 17 133/77 03/17/25 16:07 98.7 91 17 133/77 (95) 96 98.7 03/17/25 15:19 98.9 89 17 122/68 (86) 98 98.9 03/17/25 15:19 89 17 122/68 03/17/25 13:28 97.9 86 17 135/71 (92) 98 97.9 03/17/25 12:41 97.9 89 19 128/83 98 97.9 Lab Test 03/17/25 14:32 03/17/25 14:00 Range/Units White Blood Count 11.5 #H 4.4-10.8 10^3/uL Red Blood Count 5.42 H 4.0-5.20 10^6/uL Hemoglobin 9.2 L 12.2-16.2 g/dL Hematocrit 31.2 #L 36.0-46.0 % Mean Corpuscular Volume 57.6 L 80.0-100.0 fL Mean Corpuscular Hemoglobin 17.1 L 28.0-32.0 pg Mean Corpuscular Hemoglobin Concent 29.6 L 32.0-36.0 g/dL Red Cell Distribution Width 20.5 H 11.8-14.3 % Platelet Count 314 140-450 10^3/uL Mean Platelet Volume 8.2 6.9-10.8 fL Neutrophils (%) (Auto) 75.9 37.0-80.0 % Lymphocytes (%) (Auto) 15.3 10.0-50.0 % Monocytes (%) (Auto) 5.4 0.0-12.0 % Eosinophils (%) (Auto) 2.7 0.0-7.0 % Basophils (%) (Auto) 0.7 0.0-2.0 % Neutrophils # (Auto) 8.7 H 1.6-8.6 10 ^3/uL Lymphocytes # (Auto) 1.7 0.4-5.4 10 ^3/uL Monocytes # (Auto) 0.6 0-1.3 10 ^3/uL Eosinophils # (Auto) 0.3 0-0.8 10 ^3/uL Basophils # (Auto) 0.1 0-0.2 10 ^3/uL Nucleated Red Blood Cells 0.0 % Sodium Level 140 136-145 mmol/L Potassium Level 4.1 3.5-5.1 mmol/L Chloride Level 104 98-107 mmol/L Carbon Dioxide Level 26 20-31 mmol/L Anion Gap 10 5-15 Blood Urea Nitrogen 10 9-23 mg/dL Creatinine 0.72 # 0.550-1.02 mg/dL Glomerular Filtration Rate Calc 101 >90 mL/min BUN/Creatinine Ratio 13.9 10.0-20.0 Serum Glucose 134 H 74-106 mg/dL Calcium Level 10.4 8.7-10.4 mg/dL Lipase 88 H 12-53 U/L Urine Color Colorless Yellow Urine Clarity Clear Clear Urine pH 6.0 5.0-9.0 Urine Specific [place] 1.042 H 1.001-1.035 Urine Protein Trace H Negative Urine Ketones Negative Negative Urine Blood 3+ H Negative /uL Urine Nitrite Negative Negative Urine Bilirubin Negative Negative Urine Urobilinogen Normal Negative mg/dL Urine Leukocyte Esterase Trace Negative /uL Urine RBC 80 0 - 4 /hpf Urine Microscopic WBC 18 H 0-5 /HPF Urine Squamous Epithelial Cells Mod <5 /hpf Urine Bacteria Few H None Seen /hpf Urine Mucus Few None Seen Urine Glucose 4+ H Normal mg/dL Current Medications Medications (Trade) Dose Ordered Sig/Thomas Route Start Time Stop Time Status Last Admin Ondansetron HCl (Zofran) 4 mg ONCE ONCE IV 03/17/25 13:30 03/17/25 13:31 DC 03/17/25 15:18 Morphine Sulfate 4 mg ONCE ONCE IV 03/17/25 13:30 03/17/25 13:31 DC 03/17/25 15:19 Ceftriaxone Sodium 50 ml @ 100 mls/hr ONCE ONCE IV 03/17/25 15:15 03/17/25 15:44 DC 03/17/25 15:18 Patient alert. Came in because of abdominal discomfort. Vitals stable. Answering questions. Saturation pristine on room air. Heart rate within normal limits. Reviewed her previous visit. She will was just discharged from this hospital. Continues to have abdominal pain. Establish intravenous access. Was given fluids. Was given Zofran. Was given morphine. Continue monitoring. Time of 1ST Reevaluation: 13:12 Reevaluation 1ST: Unchanged Patient Education/Counseling: Diagnosis, Treatment, Prognosis Family Education/Counseling: No Family Present SEPSIS Sepsis Screen Date sepsis recognized/suspect: Mar 17, 2025 Time Sepsis recognized/suspect: 1243 Recent Procedure: No On Antibiotic Therapy: No Respiratory Rate >20: No Heart Rate >90: No Temp<36 C (96.8 F) or >38.3 C: No SBP <90 or MAP <65 mmHG: No New Acute Mental Status Change: No Is the patient on CPAP, BIPAP,: No Physician Orders Ct Ab Pel Wo Con-No Oral Or Iv (03/17/25 13:26) Stool Occult Blood (03/17/25 15:13) Vital Signs Date Time Temp Pulse Resp B/P (MAP) Pulse Ox O2 Delivery O2 Flow Rate FiO2 03/17/25 16:07 91 17 133/77 03/17/25 16:07 98.7 91 17 133/77 (95) 96 98.7 03/17/25 15:19 98.9 89 17 122/68 (86) 98 98.9 03/17/25 15:19 89 17 122/68 03/17/25 13:28 97.9 86 17 135/71 (92) 98 97.9 03/17/25 12:41 97.9 89 19 128/83 98 97.9 Laboratory Tests Test 03/17/25 14:32 White Blood Count 11.5 10^3/uL (4.4-10.8) #H Medications Medications Dose Ordered Sig/Thomas Route Start Time Stop Time Status Last Admin Dose Admin Ceftriaxone Sodium 50 ml @ 100 mls/hr ONCE ONCE IV 03/17/25 15:15 03/17/25 15:44 DC 03/17/25 15:18 Morphine Sulfate 4 mg ONCE ONCE IV 03/17/25 13:30 03/17/25 13:31 DC 03/17/25 15:19 Ondansetron HCl 4 mg ONCE ONCE IV 03/17/25 13:30 03/17/25 13:31 DC 03/17/25 15:18 Departure 1 Departure Time of Disposition: 13:29 Impression: Primary Impression: Abdominal pain of unknown etiology Additional Impression: Non-specific colitis Disposition: 09 ADMITTED INPATIENT Admit to: Med Surg Condition: Guarded Critical Care Note Critical Care Time?: No Stability Stability form required: No I personally scribed for ROSALEE MONSON MD ([email or web address]) on 03/17/25 at 13:22. Electronically submitted by Kelsey Saleh ([facility]). ROSALEE MONSON MD Mar 17, 2025 13:22
[2025-03-17 14:39] LABS: Hemoglobin 9.2 g/dL (12.2-16.2); Mean Corpuscular Volume 57.6 fL (80.0-100.0); Nucleated Red Blood Cells % 0.0 %
--- NOTE | 2025-03-17 14:41 | DVH ---
CT abdomen and pelvis without contrast INDICATION: colitis TECHNIQUE: Serial axial images were performed through the abdomen and pelvis and then reformatted in the sagittal and coronal plane. All CT scans at this medical facility are performed using dose modulation techniques as appropriate to a performed exam including the following: Automated exposure control was utilized; adjustment of the MA and/or KvP according to patient size; and use of iterative reconstruction technique. FINDINGS: Liver and spleen are normal in size without focal mass. No renal masses, stones or hydronephrosis. No masses or enlargement of the adrenal glands or pancreas. No biliary dilatation. No gallstones. No distention of bowel loops to suggest mechanical obstruction of bowel. The appendix is normal in appearance. No free fluid. Within the pelvis, bladder is smooth walled without stones. Small right ovarian cyst. No free fluid. IMPRESSION: Study limited by lack of IV contrast 1. No obvious acute pathology in the abdomen or pelvis. If colitis is suspected clinically then study should be repeated with IV or oral contrast Computed Tomographic Radiation Dosimetry Report: Total CTDI vol = 19.18mGy Total DLP = 980.12mGy-cm Low dose protocols were performed.
[2025-03-17 14:42] LABS: Hematocrit 31.2 % (36.0-46.0); Mean Corpuscular Hemoglobin 17.1 pg (28.0-32.0)
[2025-03-17 14:49] LABS: Chloride 104 mmol/L (98-107); Potassium 4.1 mmol/L (3.5-5.1); Sodium 140 mmol/L (136-145)
[2025-03-17 14:50] LABS: Anion Gap 10 (5-15); Calcium 10.4 mg/dL (8.7-10.4); Carbon Dioxide 26 mmol/L (20-31)
[2025-03-17 14:55] LABS: BUN/Creatinine Ratio 13.9 (10.0-20.0); Blood Urea Nitrogen 10 mg/dL (9-23)
[2025-03-17 14:56] LABS: Urine Protein, UAD TRACE (Negative)
[2025-03-17 15:02] LABS: Glucose 134 mg/dL (74-106)
[2025-03-17 15:10] LABS: Lipase 88 U/L (12-53)
[2025-03-17] MEDS: ONDANSETRON HCL 4 MG/2 ML VIAL IV ONE (15:18)
[2025-03-17] MEDS: MORPHINE SULFATE 4 MG/ML SYR/VIAL IV ONE (15:19)
[2025-03-17] MEDS ORDERED: ONDANSETRON HCL 4 MG/2 ML VIAL IV PRN (18:45)
[2025-03-17] MEDS ORDERED: NITROGLYCERIN 0.4 MG SL TAB SL PRN (18:45)
[2025-03-17] MEDS ORDERED: DEXTROSE (50%) 50ML SYRG IV PRN (18:45)
--- NOTE | 2025-03-17 18:48 | DVHHPRES ---
History of Present Illness Resident Creating Document: KEYLA WASHINGTON RESIDENT History of Present Illness Erwin Cevallos is a 49/F patient with a recent prior admission presenting with abdominal pain and bloody diarrhea that began yesterday morning. He reports waking up yesterday and experiencing watery, red-colored stools. She has been experiencing stomach pain throughout the morning, specifically localized to the right side of her abdomen, with some mild pain in the central abdomen as well. The pain has been persistent and severe enough that she is unable to eat or drink anything. She initially tried to rest and relax, but the pain continued to worsen progressively until it became unbearable, prompting his return to seek medical care. 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 Gastrointestinal: Positive for abdominal pain on the right side and some central abdominal discomfort, watery stools with blood, inability to eat or drink. Review of Systems Allergies: Coded Allergies: Prochlorperazine (Verified Allergy, Unknown, 03/02/22) Medications Current Medications Medications Dose Ordered Sig/Thomas Route Start Time Stop Time Status Last Admin Dose Admin Sodium Chloride 10 ml Q8HR IV 03/17/25 22:00 Sodium Chloride 1,000 ml @ 120 mls/hr Q8H20M IV 03/17/25 18:45 Ondansetron HCl 4 mg Q4HP PRN IV 03/17/25 18:45 UNV Enoxaparin Sodium 40 mg DAILY SC 03/18/25 10:00 UNV Acetaminophen 650 mg Q6HP PRN PO 03/17/25 18:45 Morphine Sulfate 2 mg Q4HPRN PRN IV 03/17/25 18:45 UNV Nitroglycerin 0.4 mg Q5MINP PRN SL 03/17/25 18:45 Morphine Sulfate 2 mg Q30M PRN IV 03/17/25 18:45 UNV Ceftriaxone Sodium 50 ml @ 100 mls/hr DAILY@09 IV 03/18/25 09:00 Metronidazole 100 ml @ 100 mls/hr Q8HR IV 03/17/25 22:00 Pantoprazole Sodium 40 mg DAILY IV 03/18/25 10:00 Sucralfate 1 gm BID@0600,2200 PO 03/17/25 22:00 Exam Vital Signs Vital Signs Date Time Temp Pulse Resp B/P (MAP) Pulse Ox O2 Delivery O2 Flow Rate FiO2 03/17/25 17:53 97.9 85 18 118/58 (78) 97 97.9 Exam Pt is lying on bed General Appearance: Alert, Oriented X3, Cooperative, Not in acute distress HEENT: Atraumatic, Mucous membranes moist/pink Respiratory: Clear to auscultation, Normal air movement, No added sounds Cardiovascular: Regular rate, Normal S1, Normal S2, No murmurs Abdominal: right-sided and suprapubic abdominal tenderness Extremities: No edema, Normal pulses, No tenderness/swelling Skin: No Significant rash, except past surgical scars Neuro: Normal speech, sensorimotor deficits none Psych/Mental Status: Mental status NL, Mood NL Nurse was there as trucksmith during examination Labs/Xrays Labs Test 03/17/25 14:32 03/17/25 14:00 Range/Units White Blood Count 11.5 #H 4.4-10.8 10^3/uL Red Blood Count 5.42 H 4.0-5.20 10^6/uL Hemoglobin 9.2 L 12.2-16.2 g/dL Hematocrit 31.2 #L 36.0-46.0 % Mean Corpuscular Volume 57.6 L 80.0-100.0 fL Mean Corpuscular Hemoglobin 17.1 L 28.0-32.0 pg Mean Corpuscular Hemoglobin Concent 29.6 L 32.0-36.0 g/dL Red Cell Distribution Width 20.5 H 11.8-14.3 % Platelet Count 314 140-450 10^3/uL Mean Platelet Volume 8.2 6.9-10.8 fL Neutrophils (%) (Auto) 75.9 37.0-80.0 % Lymphocytes (%) (Auto) 15.3 10.0-50.0 % Monocytes (%) (Auto) 5.4 0.0-12.0 % Eosinophils (%) (Auto) 2.7 0.0-7.0 % Basophils (%) (Auto) 0.7 0.0-2.0 % Neutrophils # (Auto) 8.7 H 1.6-8.6 10 ^3/uL Lymphocytes # (Auto) 1.7 0.4-5.4 10 ^3/uL Monocytes # (Auto) 0.6 0-1.3 10 ^3/uL Eosinophils # (Auto) 0.3 0-0.8 10 ^3/uL Basophils # (Auto) 0.1 0-0.2 10 ^3/uL Nucleated Red Blood Cells 0.0 % Sodium Level 140 136-145 mmol/L Potassium Level 4.1 3.5-5.1 mmol/L Chloride Level 104 98-107 mmol/L Carbon Dioxide Level 26 20-31 mmol/L Anion Gap 10 5-15 Blood Urea Nitrogen 10 9-23 mg/dL Creatinine 0.72 # 0.550-1.02 mg/dL Glomerular Filtration Rate Calc 101 >90 mL/min BUN/Creatinine Ratio 13.9 10.0-20.0 Serum Glucose 134 H 74-106 mg/dL Calcium Level 10.4 8.7-10.4 mg/dL Lipase 88 H 12-53 U/L Urine Color Colorless Yellow Urine Clarity Clear Clear Urine pH 6.0 5.0-9.0 Urine Specific [place] 1.042 H 1.001-1.035 Urine Protein Trace H Negative Urine Ketones Negative Negative Urine Blood 3+ H Negative /uL Urine Nitrite Negative Negative Urine Bilirubin Negative Negative Urine Urobilinogen Normal Negative mg/dL Urine Leukocyte Esterase Trace Negative /uL Urine RBC 80 0 - 4 /hpf Urine Microscopic WBC 18 H 0-5 /HPF Urine Squamous Epithelial Cells Mod <5 /hpf Urine Bacteria Few H None Seen /hpf Urine Mucus Few None Seen Urine Glucose 4+ H Normal mg/dL SEPSIS Sepsis Screen Date sepsis recognized/suspect: Mar 17, 2025 Time Sepsis recognized/suspect: 1519 Recent Procedure: No On Antibiotic Therapy: Yes Respiratory Rate >20: No Heart Rate >90: No Temp<36 C (96.8 F) or >38.3 C: No SBP <90 or MAP <65 mmHG: No New Acute Mental Status Change: No Is the patient on CPAP, BIPAP,: No Physician Orders Ct Ab Pel Wo Con-No Oral Or Iv (03/17/25 13:26) Stool Occult Blood (03/17/25 15:13) Admit (03/17/25 18:34) Allergies (03/17/25 18:34) Code Status (03/17/25 18:34) Sodium Chloride Lock (Saline Lock Ns) (03/17/25 22:00) Sodium Chloride 0.9% (03/17/25 18:45) Ondansetron Hcl (Zofran) (03/17/25 18:45) Enoxaparin Sodium (Lovenox) (03/18/25 10:00) Complete Blood Count (03/18/25 04:00) Comprehensive Metabolic Panel (03/18/25 04:00) Npo (Nothing By Mouth) Diet (03/18/25 Breakfast) Condition: Fair (03/17/25 18:34) Acetaminophen Tablet (Tylenol Tablet) (03/17/25 18:45) Morphine Sulfate Injection (03/17/25 18:45) Nitroglycerin Sublingual (Ntrostat Subli (03/17/25 18:45) Morphine Sulfate Injection (03/17/25 18:45) Oxygen By Nasal Cannula (03/17/25:34) Stat Ekg For Chest Pain (03/17/25 18:34) Notify Md Of Changes From Base (03/17/25 18:34) Warehouse Freight Handler For 24 Hours (03/17/25 18:34) Emergency Dysrhythmia Protocol (03/17/25 18:34) Rhythm Strips Once Every Shift (03/17/25 18:34) Ceftriaxone 1gm/50ml (Rocephin) (03/18/25 09:00) Metronidazole 500mg/100ml (Flagyl 500mg/ (03/17/25 22:00) Pantoprazole (Protonix) (03/18/25 10:00) Sucralfate Susp (Carafate Susp) (03/17/25 22:00) Stool Bacterial Culture (03/17/25 18:34) Stool Wbc (03/17/25 18:34) Clostridium Difficile Toxin (03/17/25 18:34) Blood Culture (03/17/25 18:34) Urine Bacterial Culture (03/17/25 18:34) PTPTT (03/17/25 18:34) Lipase (03/18/25 04:00) Stool Occult Blood (03/17/25 18:44) Glucose Blood (Accu-Chek Comfort Curve T (03/18/25 00:00) Mild Sliding Scale Npo - Q6hr (03/18/25 00:00) Dextrose 50% Syringe (03/17/25 18:45) Vital Signs Date Time Temp Pulse Resp B/P (MAP) Pulse Ox O2 Delivery O2 Flow Rate FiO2 03/17/25 17:53 97.9 85 18 118/58 (78) 97 97.9 03/17/25 16:07 91 17 133/77 03/17/25 16:07 98.7 91 17 133/77 (95) 96 98.7 03/17/25 15:19 98.9 89 17 122/68 (86) 98 98.9 03/17/25 15:19 89 17 122/68 03/17/25 13:28 97.9 86 17 135/71 (92) 98 97.9 03/17/25 12:41 97.9 89 19 128/83 98 97.9 Laboratory Tests Test 03/17/25 14:32 White Blood Count 11.5 10^3/uL (4.4-10.8) #H Medications Medications Dose Ordered Sig/Thomas Route Start Time Stop Time Status Last Admin Dose Admin Ceftriaxone Sodium 50 ml @ 100 mls/hr ONCE ONCE IV 03/17/25 15:15 03/17/25 15:44 DC 03/17/25 15:18 100 MLS/HR Metronidazole 100 ml @ 100 mls/hr ONCE ONCE IV 03/17/25 17:30 03/17/25 18:29 DC 03/17/25 17:47 100 MLS/HR Morphine Sulfate 4 mg ONCE ONCE IV 03/17/25 13:30 03/17/25 13:31 DC 03/17/25 15:19 4 MG Ondansetron HCl 4 mg ONCE ONCE IV 03/17/25 13:30 03/17/25 13:31 DC 03/17/25 15:18 4 MG Assessment/Plan Assessment/Plan Erwin Garcia returns with right-sided abdominal pain and bloody watery stools following a recent admission Bloody diarrhea with abdominal pain Melena / hematochezia Possible gastroenteritis Acute complicated UTI Possible colitis Rule out C diff Erosive esophagitis Plan: - Admit patient for further evaluation and management - Start antibiotics Rocephin and Flagyl - IV fluids - NPO - urine culture and blood culture - stool studies - CT abdominal pelvis - symptomatic management - Protonix and Carafate - lipase mildly elevated T2 DM- ISS GI PPX: Protonix VTE ppx: Lovenox Diet: NPO Goals of care addressed with the patient for more than 27 minutes: Full code status Case discussed with Dr. Houser, patient and nurse Plan discussed with: Patient, Other (rn) My Orders Orders - KEYLA WASHINGTON RESIDENT Procedure Category Date Status Time Admit ADMIT 03/17/25 Transmitted 18:34 Allergies ISIAH 03/17/25 In Process 18:34 Code Status CODE 03/17/25 Transmitted 18:34 Sodium Chloride Lock PHA 03/17/25 In Process (Saline Lock Ns) 22:00 Sodium Chloride 0.9% PHA 03/17/25 In Process 18:45 Ondansetron Hcl PHA 03/17/25 Logged (Zofran) 18:45 Enoxaparin Sodium PHA 03/18/25 Logged (Lovenox) 10:00 Complete Blood Count LAB 03/18/25 Verified 04:00 Comprehensive LAB 03/18/25 Verified Metabolic Panel 04:00 Npo (Nothing By DIET 03/18/25 Transmitted Mouth) Diet Breakfast Condition: Fair ISIAH 03/17/25 In Process 18:34 Acetaminophen Tablet PHA 03/17/25 In Process (Tylenol Tablet) 18:45 Morphine Sulfate PHA 03/17/25 Logged Injection 18:45 Nitroglycerin PHA 03/17/25 In Process Sublingual (Ntrostat 18:45 Morphine Sulfate PHA 03/17/25 Logged Injection 18:45 Oxygen By Nasal RT 03/17/25 Transmitted Cannula 18:34 Stat Ekg For Chest ISIAH 03/17/25 In Process Pain 18:34 Notify Of Changes ISIAH 03/17/25 In Process From Base 18:34 Warehouse Freight Handler For [employer] 03/17/25 In Process 24 Hours 18:34 Emergency Dysrhythmia ISIAH 03/17/25 In Process Protocol 18:34 Rhythm Strips Once ISIAH 03/17/25 In Process Every Shift 18:34 Ceftriaxone 1gm/50ml PHA 03/18/25 In Process (Rocephin) 09:00 Metronidazole PHA 03/17/25 In Process 500mg/100ml (Flagyl 22:00 Pantoprazole PHA 03/18/25 In Process (Protonix) 10:00 Sucralfate Susp PHA 12/26/25 In Process (Carafate Susp) 22:00 Stool Bacterial SILVESTRE 03/17/25 Logged Culture 18:34 Stool Wbc LAB 03/17/25 Logged 18:34 Clostridium Difficile SILVESTRE 03/17/25 Logged Toxin 18:34 Blood Culture SILVESTRE 03/17/25 Logged 18:34 Urine Bacterial SILVESTRE 03/17/25 In Process Culture 18:34 PTPTT LAB 03/17/25 In Process 18:34 Lipase LAB 03/18/25 Verified 04:00 Stool Occult Blood LAB 03/17/25 Logged 18:44 Glucose Blood PHA 03/18/25 Transmitted (Accu-Chek Comfort 00:00 Mild Sliding Scale PHA 03/18/25 Transmitted Npo - Q6hr 00:00 Dextrose 50% Syringe PHA 03/17/25 Transmitted 18:45 Visit Coding STANDARD RES Billing Provider: NAYELY HOUSER MD Date of Service if different f: Mar 17, 2025 Common Visit Codes: [id number] INP/OBS CARE (HIGH) Secondary Visit Codes: [id number] CARE PLAN 30 MINUTES KEYLA WASHINGTON RESIDENT Mar 17, 2025 18:48
[2025-03-17] MEDS: PANTOPRAZOLE 40 MG/10 ML VIAL INJ IV ONE (18:57)
[2025-03-17] MEDS ORDERED: MORPHINE SULFATE 4 MG/ML SYR/VIAL IV PRN ×2 (19:00)
[2025-03-17 19:06] LABS: INR 0.97 (0.9-1.15); Partial Thromboplastin Time 23.2 SEC (24.5-34.5); Prothrombin Time 10.3 sec (9.3-11.8)
[2025-03-17] MEDS: SODIUM CHLORIDE 0.9% 1,000 ML IV SCH (21:00)
[2025-03-17] MEDS: SODIUM CHLOR 0.9% PF (SALINE LOCK) 10ML VIAL/SYR IV SCH (22:00)
[2025-03-17] MEDS: SUCRALFATE 1 GM/10 ML ORAL SUSP PO SCH (22:38)
[2025-03-18] MEDS: InsuLIN REG 1unit/0.01ml Soln (100units/ml) SC SCH
[2025-03-18] MEDS: ACCU-CHEK COMFORT CURVE STRIP VI SCH (00:15)
[2025-03-18 03:30] LABS: Nucleated Red Blood Cells % 0.0 %
[2025-03-18 03:33] LABS: Hematocrit 28.3 % (36.0-46.0); Hemoglobin 8.5 g/dL (12.2-16.2); Mean Corpuscular Hemoglobin 17.5 pg (28.0-32.0); Mean Corpuscular Volume 58.7 fL (80.0-100.0)
[2025-03-18 03:57] LABS: Alanine Aminotransferase 15 U/L (7-40); Alkaline Phosphatase 53 U/L (46-116); Anion Gap 9 (5-15); BUN/Creatinine Ratio 15.5 (10.0-20.0); Blood Urea Nitrogen 9 mg/dL (9-23); Calcium 9.4 mg/dL (8.7-10.4); Carbon Dioxide 23 mmol/L (20-31); Chloride 105 mmol/L (98-107); Glucose 97 mg/dL (74-106); Potassium 3.6 mmol/L (3.5-5.1); Sodium 137 mmol/L (136-145); Total Protein 7.7 g/dL (5.7-8.2)
[2025-03-18 03:58] LABS: Bilirubin, Total 0.4 mg/dL (0.2-1.0)
[2025-03-18 04:10] LABS: Lipase 70 U/L (12-53)
[2025-03-18 04:23] LABS: Albumin 4.1 g/dL (3.2-4.8)
[2025-03-18 07:50] VITALS: PULSE 81; RESP 17; O2SAT 95
[2025-03-18] MEDS: ENOXAPARIN SOD 40 MG/0.4 ML SYRINGE SC SCH (10:06)
[2025-03-18] MEDS: PANTOPRAZOLE 40 MG/10 ML VIAL INJ IV SCH (10:06)
[2025-03-18 13:35] VITALS: BP 104/67; PULSE 68; RESP 16; TEMP 97.7; O2SAT 99
--- NOTE | 2025-03-18 15:40 | DVHPN2 ---
Subjective Patient reports improvement with the abdominal pain Reviewed: Care Plan, H&P, Labs, Medications Changes from previous H/P or p: No Changes General: Per HPI Objective Vitals Vital Signs Date Time Temp Pulse Resp B/P (MAP) Pulse Ox O2 Delivery O2 Flow Rate FiO2 03/18/25 13:49 Room Air* 0 21 03/18/25 13:35 97.7 68 16 104/67 (79) 99 97.7 Intake/Output Intake and Output 03/18/25 07:00 Intake Total 1330 ml Balance 1330 ml Intake IV Total 1330 ml General Appearance: Alert, Oriented X3, Cooperative, mild distress HEENT: Atraumatic, PERRLA Lungs: Clear to auscultation, Normal air movement Cardiovascular: Normal S1, Normal S2 Abdomen: Normal bowel sounds, Soft, No tenderness, No hepatospenomegaly Musculoskeletal: Normal sensory function, Normal motor function Extremities: No clubbing, No cyanosis, No edema, Normal pulses, No tenderness/swelling Neuro: Normal speech Skin: Dry, Intact Psych/Mental Status: Mental status NL, Mood NL Medications Current Medications Medications Dose Ordered Sig/Thomas Route Start Time Stop Time Status Last Admin Dose Admin Sodium Chloride 10 ml Q8HR IV 03/17/25 22:00 03/18/25 14:00 10 ML Sodium Chloride 1,000 ml @ 120 mls/hr Q8H20M IV 03/17/25 18:45 03/18/25 05:00 120 MLS/HR Ondansetron HCl 4 mg Q4HP PRN IV 03/17/25 18:45 Enoxaparin Sodium 40 mg DAILY SC 03/18/25 10:00 03/18/25 10:06 40 MG Acetaminophen 650 mg Q6HP PRN PO 03/17/25 18:45 Morphine Sulfate 2 mg Q4HPRN PRN IV 03/17/25 19:00 Nitroglycerin 0.4 mg Q5MINP PRN SL 03/17/25 18:45 Morphine Sulfate 2 mg Q30M PRN IV 03/17/25 19:00 Ceftriaxone Sodium 50 ml @ 100 mls/hr DAILY@09 IV 03/18/25 09:00 03/18/25 09:13 100 MLS/HR Metronidazole 100 ml @ 100 mls/hr Q8HR IV 03/17/25 22:00 03/18/25 15:22 100 MLS/HR Pantoprazole Sodium 40 mg DAILY IV 03/18/25 10:00 03/18/25 10:06 40 MG Sucralfate 1 gm BID@0600,2200 PO 03/17/25 22:00 03/18/25 06:24 1 GM Diagnostic Test (Pha) 1 strip Q6HR 03/18/25 00:00 03/18/25 12:13 1 STRIP Insulin Human Regular Q6HR SC 03/18/25 00:00 Dextrose 50 ml UD PRN IV 03/17/25 18:45 Laboratory Results Laboratory Tests 03/18/25 03:02 Chemistry Test 03/18/25 03:02 Albumin 4.1 g/dL (3.2-4.8) Calcium Level 9.4 mg/dL (8.7-10.4) Total Protein 7.7 g/dL (5.7-8.2) Lipid panel Test 03/18/25 03:02 Lipase 70 U/L (12-53) H LFT Test 03/18/25 03:02 Alanine Aminotransferase (ALT) 15 U/L (7-40) Alkaline Phosphatase 53 U/L (46-116) Aspartate Amino Transferase (AST) 21 U/L (13-40) Total Bilirubin 0.4 mg/dL (0.2-1.0) Urinalysis Test 03/17/25 14:00 Urine Color Colorless (Yellow) Urine Clarity Clear (Clear) Urine pH 6.0 (5.0-9.0) Urine Specific [place] 1.042 (1.001-1.035) Urine Protein Trace (Negative) H Urine Ketones Negative (Negative) Urine Blood 3+ /uL (Negative) H Urine Nitrite Negative (Negative) Urine Bilirubin Negative (Negative) Urine Urobilinogen Normal mg/dL (Negative) Urine Leukocyte Esterase Trace /uL (Negative) Urine RBC 80 /hpf (0 - 4) Urine Microscopic WBC 18 /HPF (0-5) H Urine Squamous Epithelial Cells Mod /hpf (<5) Urine Bacteria Few /hpf (None Seen) H Urine Mucus Few (None Seen) Urine Glucose 4+ mg/dL (Normal) H Microbiology Microbiology Date/Time Source Procedure Growth Status 03/17/25 14:00 Voided Urine Urine Culture - Preliminary Resulted Labs and/or images reviewed: Labs reviewed by me, Image(s) reviewed by me Assessment/Plan Assessment/Plan Impression: -rectal bleeding, rule out colitis -gastritis, esophagitis -obesity -diabetes mellitus -primary hypertension History of brain aneurysm Plan: -CT scan of the abdomen and pelvis reviewed. No acute pathology noted. -patient states that her abdominal pain has improved. Start clear liquid diet -regular insulin sliding scale -PPI, Carafate -repeat labs in a.m. Total time spent with patient discussing and formulating plan of care: 35 minutes. This medical document was created using an electronic medical record system with [employer] dictation system. Although this document has been carefully reviewed, there may still be some phonetic and typographical errors. These areas are purely typographical due to imperfections of the software programs, and do not reflect any compromise in the patient's medical care. Plan discussed with: Patient, Other (RN) My Orders Orders - HUONG ALONSO NP Procedure Category Date Status Time Drug Screen LAB 03/18/25 Logged 15:05 Date of Service: Mar 18, 2025 Billing Provider: HUONG ALONSO NP Common Visit Codes: [id number] INP/OBS CARE(HIGH) HUONG ALONSO NP Mar 18, 2025 15:40
[2025-03-18 17:00] VITALS: BP 116/54; PULSE 76; RESP 16; TEMP 97.8; O2SAT 98
[2025-03-18 20:00] VITALS: O2SAT 0
[2025-03-18] MEDS: HYDROcodone-ACET 5/325MG TAB PO PRN (20:31)
[2025-03-18 21:00] VITALS: BP 125/71; PULSE 75; RESP 18; TEMP 97.6; O2SAT 99
[2025-03-19] VITALS (8 sets, daily range): BP systolic 111–148; BP diastolic 62–84; PULSE 69–84; RESP 17–18; TEMP 97.8–98.7; O2SAT 0–99
[2025-03-19 06:19] LABS: Hematocrit 29.9 % (36.0-46.0); Hemoglobin 8.4 g/dL (12.2-16.2); Mean Corpuscular Hemoglobin 17.3 pg (28.0-32.0); Mean Corpuscular Volume 61.5 fL (80.0-100.0); Nucleated Red Blood Cells % 0.1 %
--- NOTE | 2025-03-19 13:34 | DVHPN2 ---
Subjective Patient states that she continues to have abdominal pain after eating. Reviewed: Care Plan, H&P, Labs, Medications Changes from previous H/P or p: Changes General: Per HPI Objective Vitals Vital Signs Date Time Temp Pulse Resp B/P (MAP) Pulse Ox O2 Delivery O2 Flow Rate FiO2 03/19/25 12:33 97.9 73 18 147/84 (105) 99 97.9 03/19/25 08:00 Room Air* 0 21 Intake/Output Intake and Output 03/19/25 07:00 Intake Total 1980 ml Balance 1980 ml Intake Oral 1730 ml IV Total 250 ml # Voids 6 General Appearance: Alert, Oriented X3, Cooperative, mild distress HEENT: Atraumatic, PERRLA Lungs: Clear to auscultation, Normal air movement Cardiovascular: Normal S1, Normal S2 Abdomen: Normal bowel sounds, Soft, No tenderness, No hepatospenomegaly Musculoskeletal: Normal sensory function, Normal motor function Extremities: No clubbing, No cyanosis, No edema, Normal pulses, No tenderness/swelling Neuro: Normal speech Skin: Dry, Intact Psych/Mental Status: Mental status NL, Mood NL Medications Current Medications Medications Dose Ordered Sig/Thomas Route Start Time Stop Time Status Last Admin Dose Admin Sodium Chloride 10 ml Q8HR IV 03/17/25 22:00 03/19/25 05:19 10 ML Sodium Chloride 1,000 ml @ 120 mls/hr Q8H20M IV 03/17/25 18:45 03/19/25 05:00 120 MLS/HR Ondansetron HCl 4 mg Q4HP PRN IV 03/17/25 18:45 Enoxaparin Sodium 40 mg DAILY SC 03/18/25 10:00 03/19/25 09:01 40 MG Acetaminophen 650 mg Q6HP PRN PO 03/17/25 18:45 Morphine Sulfate 2 mg Q4HPRN PRN IV 03/17/25 19:00 Nitroglycerin 0.4 mg Q5MINP PRN SL 03/17/25 18:45 Morphine Sulfate 2 mg Q30M PRN IV 03/17/25 19:00 Ceftriaxone Sodium 50 ml @ 100 mls/hr DAILY@09 IV 03/18/25 09:00 03/19/25 09:01 100 MLS/HR Metronidazole 100 ml @ 100 mls/hr Q8HR IV 03/17/25 22:00 03/19/25 05:18 100 MLS/HR Pantoprazole Sodium 40 mg DAILY IV 03/18/25 10:00 03/19/25 09:01 40 MG Sucralfate 1 gm BID@0600,2200 PO 03/17/25 22:00 03/19/25 05:18 1 GM Diagnostic Test (Pha) 1 strip Q6HR 03/18/25 00:00 03/19/25 11:29 1 STRIP Insulin Human Regular Q6HR SC 03/18/25 00:00 Dextrose 50 ml UD PRN IV 03/17/25 18:45 Acetaminophen/ Hydrocodone Bitart 1 tab Q6HPRN PRN PO 03/18/25 20:30 03/19/25 05:18 1 TAB Laboratory Results Laboratory Tests 03/18/25 03:02 03/19/25 06:02 Urinalysis Test 03/17/25 14:00 Urine Color Colorless (Yellow) Urine Clarity Clear (Clear) Urine pH 6.0 (5.0-9.0) Urine Specific [place] 1.042 (1.001-1.035) Urine Protein Trace (Negative) H Urine Ketones Negative (Negative) Urine Blood 3+ /uL (Negative) H Urine Nitrite Negative (Negative) Urine Bilirubin Negative (Negative) Urine Urobilinogen Normal mg/dL (Negative) Urine Leukocyte Esterase Trace /uL (Negative) Urine RBC 80 /hpf (0 - 4) Urine Microscopic WBC 18 /HPF (0-5) H Urine Squamous Epithelial Cells Mod /hpf (<5) Urine Bacteria Few /hpf (None Seen) H Urine Mucus Few (None Seen) Urine Glucose 4+ mg/dL (Normal) H Microbiology Microbiology Date/Time Source Procedure Growth Status 03/17/25 19:35 Blood Blood Culture - Preliminary NO GROWTH AFTER 24 HOURS OF INCUBATION. Resulted 03/17/25 14:00 Voided Urine Urine Culture - Final Complete Labs and/or images reviewed: Labs reviewed by me, Image(s) reviewed by me Assessment/Plan Assessment/Plan Impression: -rectal bleeding, rule out colitis -gastritis, esophagitis -obesity -diabetes mellitus -primary hypertension History of brain aneurysm Plan: Events: Patient continues to have difficulty with abdominal discomfort after eating -continue clear liquid diet -gallbladder ultrasound -regular insulin sliding scale -PPI, Carafate -repeat labs in a.m. Total time spent with patient discussing and formulating plan of care: 35 minutes. This medical document was created using an electronic medical record system with [employer] dictation system. Although this document has been carefully reviewed, there may still be some phonetic and typographical errors. These areas are purely typographical due to imperfections of the software programs, and do not reflect any compromise in the patient's medical care. Plan discussed with: Patient, Other (RN) My Orders Orders - HUONG ALONSO NP Procedure Category Date Status Time Drug Screen LAB 03/18/25 Logged 15:05 Clear Liq Diet DIET 03/18/25 Transmitted Dinner Date of Service: Mar 19, 2025 Billing Provider: HUONG ALONSO NP Common Visit Codes: [id number] INP/OBS CARE(HIGH) HUONG ALONSO NP Mar 19, 2025 13:34
--- NOTE | 2025-03-19 14:19 | DVH ---
EXAM DESCRIPTION: US GALLBLADDER CLINICAL HISTORY: continued pain after eating COMPARISON: US GALLBLADDER on DOS: 03/13/25, GALLBLADDER on DOS: 04/17/22, GBUS on DOS: 04/17/22, GALLBLADDER on DOS: 03/02/22, GBUS on DOS: 03/02/22 TECHNIQUE: Using real-time ultrasonography multiple images of the abdomen were obtained. FINDINGS: The liver measures 18 cm. No focal liver masses. The liver is diffiusely increased in echongenicity. The partially imaged pancreas is unremarkable. No gallstones in the gallbladder. No gallbladder wall thickening. No pericholecystic fluid. Negative sonographic Antony sign. The common bile duct measures 3 mm in diameter. There is no free intraperitoneal fluid. The right kidney measures 12.8 cm. No right renal calculi or hydronephrosis. IMPRESSION: 1. Hepatic steatosis and mild hepatomegaly
[2025-03-19] MEDS: ACETAMINOPHEN 325 MG TAB PO PRN (20:27)
[2025-03-20 01:00] VITALS: BP 143/85; PULSE 76; RESP 18; TEMP 98.7; O2SAT 98
[2025-03-20 02:22] LABS: Cannabinoid Screen, Urine Neg (NEGATIVE); Opiate Scree,Urine Neg (NEGATIVE); Phencyclidine Screen, Urine Neg (NEGATIVE)
[2025-03-20 02:23] LABS: Amphetamine Screen, Urine Neg (NEGATIVE); Barbiturate Scree,Urine Neg (NEGATIVE); Benzodiazephine Screen, Urine Neg (NEGATIVE); Cocaine Screen, Urine Neg (NEGATIVE)
[2025-03-20 05:00] VITALS: BP 119/80; PULSE 77; RESP 18; TEMP 98.2; O2SAT 98
[2025-03-20 08:20] VITALS: O2SAT 0
[2025-03-20 08:35] VITALS: BP 135/88; PULSE 85; RESP 17; TEMP 98; O2SAT 99
[2025-03-20 12:48] VITALS: BP 112/62; PULSE 71; RESP 17; TEMP 98; O2SAT 99
[2025-03-20] MEDS ORDERED: CIP500T PO ×2 (14:08→15:57)
--- NOTE | 2025-03-20 14:14 | DVHDS2 ---
Discharge Summary Date of Admission Mar 17, 2025 at 18:34 Date of Discharge: Mar 20, 2025 Admitting Diagnosis Abdominal pain with questionable bloody stool Labs/Diagnostic Data: Laboratory Results Test 03/20/25 12:33 03/20/25 00:55 03/19/25 06:02 03/18/25 03:02 POC Glucose 108 mg/dl (70-106) Urine Opiates Screen Neg (NEGATIVE) Urine Fentanyl Screen Neg (NEGATIVE) Urine Barbiturates Screen Neg (NEGATIVE) Urine Phencyclidine Screen Neg (NEGATIVE) Urine Amphetamines Screen Neg (NEGATIVE) Urine Benzodiazepines Screen Neg (NEGATIVE) Urine Cocaine Screen Neg (NEGATIVE) Urine Cannabinoids Screen Neg (NEGATIVE) White Blood Count 6.8 10^3/uL (4.4-10.8) Red Blood Count 4.86 10^6/uL (4.0-5.20) Hemoglobin 8.4 g/dL (12.2-16.2) Hematocrit 29.9 % (36.0-46.0) Mean Corpuscular Volume 61.5 fL (80.0-100.0) Mean Corpuscular Hemoglobin 17.3 pg (28.0-32.0) Mean Corpuscular Hemoglobin Concent 28.1 g/dL (32.0-36.0) Red Cell Distribution Width 20.7 % (11.8-14.3) Platelet Count 250 10^3/uL (140-450) Mean Platelet Volume 8.3 fL (6.9-10.8) Neutrophils (%) (Auto) 52.3 % (37.0-80.0) Lymphocytes (%) (Auto) 29.1 % (10.0-50.0) Monocytes (%) (Auto) 6.5 % (0.0-12.0) Eosinophils (%) (Auto) 10.6 % (0.0-7.0) Basophils (%) (Auto) 1.5 % (0.0-2.0) Neutrophils # (Auto) 3.5 10 ^3/uL (1.6-8.6) Lymphocytes # (Auto) 2.0 10 ^3/uL (0.4-5.4) Monocytes # (Auto) 0.4 10 ^3/uL (0-1.3) Eosinophils # (Auto) 0.7 10 ^3/uL (0-0.8) Basophils # (Auto) 0.1 10 ^3/uL (0-0.2) Nucleated Red Blood Cells 0.1 % Sodium Level 137 mmol/L (136-145) Potassium Level 3.6 mmol/L (3.5-5.1) Chloride Level 105 mmol/L (98-107) Carbon Dioxide Level 23 mmol/L (20-31) Anion Gap 9 (5-15) Blood Urea Nitrogen 9 mg/dL (9-23) Creatinine 0.58 mg/dL (0.550-1.02) Glomerular Filtration Rate Calc 110 mL/min (>90) BUN/Creatinine Ratio 15.5 (10.0-20.0) Serum Glucose 97 mg/dL (74-106) Calcium Level 9.4 mg/dL (8.7-10.4) Total Bilirubin 0.4 mg/dL (0.2-1.0) Aspartate Amino Transferase (AST) 21 U/L (13-40) Alanine Aminotransferase (ALT) 15 U/L (7-40) Alkaline Phosphatase 53 U/L (46-116) Total Protein 7.7 g/dL (5.7-8.2) Albumin 4.1 g/dL (3.2-4.8) Lipase 70 U/L (12-53) Test 03/17/25 14:32 03/17/25 14:00 03/17/25 10:13 Prothrombin Time 10.3 sec (9.3-11.8) Prothrombin Time INR 0.97 (0.9-1.15) Activated Partial Thromboplast Time 23.2 SEC (24.5-34.5) Urine Color Colorless (Yellow) Urine Clarity Clear (Clear) Urine pH 6.0 (5.0-9.0) Urine Specific [place] 1.042 (1.001-1.035) Urine Protein Trace (Negative) Urine Ketones Negative (Negative) Urine Blood 3+ /uL (Negative) Urine Nitrite Negative (Negative) Urine Bilirubin Negative (Negative) Urine Urobilinogen Normal mg/dL (Negative) Urine Leukocyte Esterase Trace /uL (Negative) Urine RBC 80 /hpf (0 - 4) Urine Microscopic WBC 18 /HPF (0-5) Urine Squamous Epithelial Cells Mod /hpf (<5) Urine Bacteria Few /hpf (None Seen) Urine Mucus Few (None Seen) Urine Glucose 4+ mg/dL (Normal) Stool Occult Blood Negative (Negative) Stool Occult Blood Sample #3 (Negative) Stool for White Cells None seen Other Laboratory Tests 03/19/25 06:02 03/18/25 03:02 Brief Hx & Hospital Course: History of Present Illness Erwin Cevallos is a 49/F patient with a recent prior admission presenting with abdominal pain and bloody diarrhea that began yesterday morning. He reports waking up yesterday and experiencing watery, red-colored stools. She has been experiencing stomach pain throughout the morning, specifically localized to the right side of her abdomen, with some mild pain in the central abdomen as well. The pain has been persistent and severe enough that she is unable to eat or drink anything. She initially tried to rest and relax, but the pain continued to worsen progressively until it became unbearable, prompting his return to seek medical care. During the last hospitalization patient was performed EGD, found areas of esophagitis Course of hospitalization: FOBT negative for any blood. Patient was advanced to clear liquid diet. She was started on antibiotic therapy with Rocephin and Flagyl. Patient had mild UTI as well. Gallbladder ultrasound was also performed which was negative for any cholelithiasis, cholecystitis. Patient's diet will be advanced. She states that her abdominal pain has improved. If she tolerates an oral diet other than liquids she will be discharged home today. She will be continued on antibiotic therapy with ciprofloxacin 500 mg p.o. twice a day for additional four days. Patient was agreeable with discharge plan. All questions answered. Physical examination General: Alert and Oriented x3. No acute distress. Well-nourished. Eyes: EOMI. Anicteric. HENT: Moist mucous membranes. Lungs: Clear to auscultation bilaterally. No accessory muscle use. Cardiovascular: Regular rate and rhythm. No murmur. No JVD. Abdomen: Soft, non-tender and non-distended. No palpable masses. Extremities: No edema. Non-tender. Skin: No rashes or lesions. Warm. Neurologic: No focal neurological deficits. CN II-XII grossly intact, but not individually tested. Psychiatric: Cooperative. Appropriate mood and affect. Total time spent with patient discussing and formulating plan of care: 35 minutes. This medical document was created using an electronic medical record system with [employer] dictation system. Although this document has been carefully reviewed, there may still be some phonetic and typographical errors. These areas are purely typographical due to imperfections of the software programs, and do not reflect any compromise in the patient's medical care. Condition at Discharge: Guarded Final Diagnosis/Problems List Abdominal Pain, probably secondary to UTI and colitis -GI bleed ruled out -rectal bleeding, ruled out colitis -gastritis, esophagitis -obesity -diabetes mellitus -primary hypertension History of brain aneurysm Discharge Disposition: Home Discharge Instruct/Medications Diet: Regular Activity: No Restrictions, As Tolerated Follow Up/Referral: Follow up with PCP in 1-2 weeks Medications: Ciprofloxacin 500 mg p.o. b.i.d. x4 days Scheduled Budesonide (Inhalation) (Budesonide), 1 MG IN ONCE Cephalexin (Keflex Capsule), 1 CAP PO QID Ciprofloxacin Hydrochloride (Ciprofloxacin HCl), 500 MG PO BID Diclofenac Potassium (Diclofenac Potassium), 1 TAB PO TIDP Dicyclomine Hcl (Bentyl Capsule), 1 CAP PO TID Naproxen (Naproxen), 500 MG PO BIDPC Naproxen (Naproxen), 1 TAB PO BIDPC Pantoprazole Sodium Sesquihydr (Protonix), 40 MG PO DAILY Pantoprazole Sodium Sesquihydr (Pantoprazole Sodium), 40 MG PO BID Penicillin V Potassium (Veetids), 1 TAB PO BID Sucralfate (Carafate), 1 GM PO QID Tramadol Hcl (Tramadol Hcl), 50 MG PO BID Scheduled PRN Acetaminophen (Acetaminophen), 500 MG PO Q4HP PRN Ibuprofen Micronized (Ibuprofen), 600 MG PO Q6HP PRN Lidocaine HCl (Mouth-Throat) (Lidocaine HCl Viscous), 15 ML MT TIDP PRN Methocarbamol (Methocarbamol), 500 MG PO Q6HP PRN 36 Discharge Statement: "Patient was advised to return to the ER or call 911 if any headaches, dizziness, shortness of breath, chest pain, abdominal pain, bleeding, fevers, or worsening of medical condition. Patient was counseled about treatment plan, medications, possible side effects, patientverbalized understanding. All questions were answered to the best of my ability. This discharge took greater then 30 minutes in planning, reviewing documentation, counseling the patient, and discussing with other team members." ASSESSMENT ASSESSMENT Assessment Abdominal Pain, probably secondary to UTI and colitis Date of Service: Mar 20, 2025 Billing Provider: HUONG ALONSO NP Common Visit Codes: 18455-UZO/OBS DISCH DAY >30min HUONG ALONSO NP Mar 20, 2025 14:14
[2025-03-20 16:55] VITALS: BP 128/82; PULSE 78; RESP 16; TEMP 98.5; O2SAT 98
== END 2025-03-20 18:50 | disposition home or self-care (01) | DRG 463 ==
LOC: ER 12:27 → OVERFLOW 18:34 → EAST 03-18 13:33
PROVIDERS: ADMIT Nurse Practitioner Acute Care; ATTEND Nurse Practitioner Acute Care
DX: N30.01 Acute cystitis with hematuria (principal); A04.9 Bacterial intestinal infection, unspecified; E11.9 Type 2 diabetes mellitus without complications; E66.9 Obesity, unspecified; I10 Essential (primary) hypertension; R65.10 Systemic inflammatory response syndrome (SIRS) of non-infectious origin without acute organ dysfunction; K20.90 Esophagitis, unspecified without bleeding; K29.70 Gastritis, unspecified, without bleeding; Z88.8 Allergy status to other drugs, medicaments and biological substances; Z79.1 Long term (current) use of non-steroidal anti-inflammatories (NSAID); Z79.2 Long term (current) use of antibiotics; Z98.891 History of uterine scar from previous surgery; Z98.51 Tubal ligation status; Z79.899 Other long term (current) drug therapy; Z68.35 Body mass index [BMI] 35.0-35.9, adult
CPT/HCPCS: 36415; 74176; 76705; 80048; 80053; 80307; 81001; 82270; 82962; 83690; 85025; 85048; 85610; 85730; 87040; 87086; G0378; J2405; J2470; J3490